=== PATIENT | female | born 1990 | race Caucasian/White ===

== ENCOUNTER 2021-10-01 00:50 | Observation (INO) | payer OTHER, SELFPAY ==
[2021-10-01 01:12] VITALS: BP 120/70; PULSE 93
[2021-10-01 01:23] VITALS: BMI 32.0
--- NOTE | 2021-10-01 01:23 | OBADM ---
This patient, Jenifer Jesus, admitted to the OB room OB Post 116 for observation. Patient/family oriented to hospital policies and general routines including ID bracelet, bed and alarms, visiting hours, pain management, procedures, bathroom and other care routines, personal items, smoking policy, room service/diet, and visiting hours. Patient/Family are encouraged to report perceived risks to care and to ask questions if they do not understand what they are told or what they should do.
[2021-10-01 01:31] VITALS: BP 121/64; PULSE 90
[2021-10-01 01:37] LABS: Add Urine Microscopic? YES; Appearance Urine Clear (Clear); Bacteria Urine Trace /hpf; Bilirubin Urine Negative (Negative); Blood Urine Negative (Negative); Color Urine Yellow (Yellow); Glucose Urine UA Negative (Negative); Ketones Urine Negative (Negative); Leukocyte Esterase Ur Trace LEU/UL (NEGATIVE); Mucus Urine Rare /lpf; Nitrate Urine Negative (Negative); Protein Urine Negative (Negative); RBC Urine 0-2 /hpf (0-2); Specific Grav Ur 1.017 (1.001-1.035); Squamous Epithelial Cell Urine Many /hpf (Few); Urobilinogen Urine Negative mg/dL (<2.0)
[2021-10-01 01:46] VITALS: BP 117/69; PULSE 88
[2021-10-01] MEDS: TERBUTALINE SULFATE 1 MG/ML VIAL 0.25 MG SUB-Q (01:55)
--- NOTE | 2021-10-13 16:20 | PM.OBTRLD ---
OB - Triage/Final Diagnosis Visit Information Reason for evaluation: threatened labor Comments/Additional reasons for admission: I have assessed the risk for this patient, Jenifer Jesus, and determined that she would benefit from observation care. Evaluation Laboratory results: Laboratory Tests 10/01/21 01:13 Urine Color Yellow Urine Appearance Clear Urine pH 6.0 Ur Specific [place] 1.017 Urine Protein Negative Urine Glucose (UA) Negative Urine Ketones Negative Ur Blood (Man) Negative Urine Nitrate Negative Urine Bilirubin Negative Urine Urobilinogen Negative Ur Leukocyte Esterase Trace H Urine RBC 0-2 Urine WBC 4-6 H Ur Squamous Epith Cells Many H Urine Bacteria Trace Urine Mucus Rare
== END 2021-10-01 03:00 | disposition home or self-care (01) ==
PROVIDERS: Admitting Provider Obstetrics & Gynecology; PCP Emergency Medicine; Visit Provider Obstetrics & Gynecology
DX: O47.03 False labor before 37 completed weeks of gestation, third trimester (principal); Z3A.32 32 weeks gestation of pregnancy
CPT/HCPCS: 81001; 87086; 87088; 96372; G0378; G0379; J3105

== ENCOUNTER 2021-10-08 09:46 | Observation (INO) | payer OTHER, SELFPAY ==
--- NOTE | ~2021-10-08 | US_ITS ---
EXAMINATION: US OB BPP wo non-stress DATE: 10/08/2021 12:15 INDICATION: labor during third trimester TECHNIQUE: Real-time pelvic ultrasound was performed with transabdominal probe. The interpreting radi ologist was not present for the study. COMPARISON: None. FINDINGS: There is a single living fetus in vertex presentation. The placenta is posterior with caudal margin 6.9 cm from the internal cervical os. heart rate is 143 beats per minute (bpm). Suggestion of p ossible funneling at the internal cervical os over the cervix is not sufficiently profiled for diagno stic assessment. Biophysical profile performed by the technologist: breathing (30 sec sustained breathing in 30 minutes): 2 out of 2 movement (3 gross body movements in 30 minutes): 2 out of 2 tone (one episode of mzzrxgm-bthsmsric-sevzhts limb movement): 2 out of 2 Amniotic fluid pocket (2 cm): 2 out of 2 Total score: 8 out of 8 IMPRESSION: 1. Single living fetus in vertex presentation with heart rate of 143 bpm. 2. Biophysical profile 8 out of 8. 3. Possible funneling at the internal cervical os however the cervix is not adequately visualized for diagnostic assessment. Reviewed, dictated and finalized at location A. [facility] IMPRESSION: 1. Single living fetus in vertex presentation with heart rate of 143 bpm. 2. Biophysical profile 8 out of 8. 3. Possible funneling at the internal cervical os however the cervix is not john quately visualized for diagnostic assessment.
[2021-10-08 11:45] LABS: Basophils Percent Auto 0.3 % (0.2-1.2); Eosinophils Absolute Auto 0.1 K/mm3 (0-0.3); Eosinophils Percent Auto 0.9 % (0-4.4); Hematocrit 28.9 % (37.0-47.0); Hemoglobin 9.3 g/dL (12.0-15.0); Immature Granulocyte Absolute 0.24 K/mm3 (0.00-0.031); Immature Granulocyte Percent A 1.9 % (0-0.5); Lymphocytes Absolute Auto 3.26 K/mm3 (0.9-3.2); Lymphocytes Percent Auto 25.3 % (18.3-44.2); Mean Corpuscular HGB Conc 32.2 g/dl (32-36); Mean Corpuscular Hemoglobin 29.3 pg (26-34); Mean Corpuscular Volume 91.2 fl (80-100); Mean Platelet Volume 9.3 fl (7.4-10.4); Monocytes Absolute Auto 0.7 K/mm3 (0.1-0.6); Monocytes Percent Auto 5.6 % (2.6-8.5); Neutrophils Absolute Auto 8.5 K/mm3 (1.3-6.7); Platelet Count Result 299 k/mm3 (150-375); Red Blood Count 3.17 M/mm3 (4.2-5.4); Red Cell Distribution Width 14.9 % (11.5-14.5); White Blood Count 12.9 K/mm3 (4.5-10.0)
[2021-10-08] MEDS: BETAMETHASONE SOD PHOS/ACETATE 30 MG/5 ML VIAL 12 MG IM (11:48)
[2021-10-08 11:51] VITALS: BP 119/76; PULSE 89
[2021-10-08 12:01] LABS: Glucose 1 Hour PP 50gm Dose 126 mg/dL
[2021-10-08 12:04] LABS: Add Urine Microscopic? YES; Appearance Urine Clear (Clear); Bilirubin Urine Negative (Negative); Blood Urine Negative (Negative); Color Urine Yellow (Yellow); Glucose Urine UA Negative (Negative); Ketones Urine Negative (Negative); Leukocyte Esterase Ur 1+ LEU/UL (NEGATIVE); Mucus Urine Rare /lpf; Nitrate Urine Negative (Negative); Protein Urine Negative (Negative); RBC Urine 0-2 /hpf (0-2); Specific Grav Ur 1.016 (1.001-1.035); Squamous Epithelial Cell Urine Many /hpf (Few); Urobilinogen Urine Negative mg/dL (<2.0)
[2021-10-08 12:32] LABS: Hepatitis B Surface Antigen Negative (Negative)
[2021-10-08 12:42] LABS: HIV 1/2 Ab P24 Ag Result Negative (Negative)
[2021-10-08 13:06] LABS: Rapid Plasma Reagin Non-Reactive (NonReactive)
[2021-10-08 13:23] VITALS: BMI 34.0
--- NOTE | 2021-10-09 18:16 | PM.OBTRLD ---
OB - Triage/Final Diagnosis Visit Information Comments/Additional reasons for admission: I have assessed the risk for this patient, Jenifer Jesus, and determined that she would benefit from observation care. Evaluation Laboratory results: Laboratory Tests 10/08/21 10/08/21 10/08/21 11:18 11:18 11:18 WBC RBC Hgb Hct MCV MCH MCHC RDW Plt Count MPV Immature Gran % (Auto) Neut % (Auto) Lymph % (Auto) [place] % (Auto) Eos % (Auto) Baso % (Auto) Lymph # (Auto) [place] # (Auto) Eos # (Auto) Baso # (Auto) Abs Immat Gran (auto) Absolute Neuts (auto) Absolute Nucleated RBC Nucleated RBC % Glucose 1 Hr 50 gm Urine Color Yellow Urine Appearance Clear Urine pH 7.0 Ur Specific [place] 1.016 Urine Protein Negative Urine Glucose (UA) Negative Urine Ketones Negative Ur Blood (Man) Negative Urine Nitrate Negative Urine Bilirubin Negative Urine Urobilinogen Negative Ur Leukocyte Esterase 1+ H Urine RBC 0-2 Urine WBC 4-6 H Ur Squamous Epith Cells Many H Urine Mucus Rare RPR Non-reactive Hep Bs Antigen Negative HIV 1&2 Ab/P24 Ag 4thGn Blood Type Antibody Screen Screen Baby's Blood Type Baby's RUTH Doses of RhIg Required 10/08/21 10/08/21 10/08/21 11:18 11:18 11:18 WBC 12.9 H RBC 3.17 L Hgb 9.3 L Hct 28.9 L MCV 91.2 MCH 29.3 MCHC 32.2 RDW 14.9 H Plt Count 299 MPV 9.3 Immature Gran % (Auto) 1.9 H Neut % (Auto) 66.0 Lymph % (Auto) 25.3 [place] % (Auto) 5.6 Eos % (Auto) 0.9 Baso % (Auto) 0.3 Lymph # (Auto) 3.26 H [place] # (Auto) 0.7 H Eos # (Auto) 0.1 Baso # (Auto) 0.0 Abs Immat Gran (auto) 0.24 H Absolute Neuts (auto) 8.5 H Absolute Nucleated RBC 0.0 Nucleated RBC % 0.0 Glucose 1 Hr 50 gm 126 Urine Color Urine Appearance Urine pH Ur Specific [place] Urine Protein Urine Glucose (UA) Urine Ketones Ur Blood (Man) Urine Nitrate Urine Bilirubin Urine Urobilinogen Ur Leukocyte Esterase Urine RBC Urine WBC Ur Squamous Epith Cells Urine Mucus RPR Hep Bs Antigen HIV 1&2 Ab/P24 Ag 4thGn Negative Blood Type Antibody Screen Screen Baby's Blood Type Baby's RUTH Doses of RhIg Required 10/08/21 11:18 WBC RBC Hgb Hct MCV MCH MCHC RDW Plt Count MPV Immature Gran % (Auto) Neut % (Auto) Lymph % (Auto) [place] % (Auto) Eos % (Auto) Baso % (Auto) Lymph # (Auto) [place] # (Auto) Eos # (Auto) Baso # (Auto) Abs Immat Gran (auto) Absolute Neuts (auto) Absolute Nucleated RBC Nucleated RBC % Glucose 1 Hr 50 gm Urine Color Urine Appearance Urine pH Ur Specific [place] Urine Protein Urine Glucose (UA) Urine Ketones Ur Blood (Man) Urine Nitrate Urine Bilirubin Urine Urobilinogen Ur Leukocyte Esterase Urine RBC Urine WBC Ur Squamous Epith Cells Urine Mucus RPR Hep Bs Antigen HIV 1&2 Ab/P24 Ag 4thGn Blood Type O Negative Antibody Screen Negative Screen Not Reportable Baby's Blood Type Not Reportable Baby's RUTH Not Reportable Doses of RhIg Required 1 Final Diagnosis (1) Vaginal discharge during : Code(s): O26.899 - Other specified related conditions, unspecified trimester; N89.8 - Other specified noninflammatory disorders of vagina Status: Acute
== END 2021-10-08 13:05 | disposition home or self-care (01) ==
PROVIDERS: Admitting Provider Obstetrics & Gynecology; PCP Emergency Medicine; Visit Provider Obstetrics & Gynecology
DX: O26.899 Other specified pregnancy related conditions, unspecified trimester (principal); N89.8 Other specified noninflammatory disorders of vagina; Z3A.00 Weeks of gestation of pregnancy not specified
CPT/HCPCS: 36415; 76819; 81001; 82947; 85025; 85461; 86592; 86644; 86703; 86747; 86787; 87086; 87088; 87340; 96372; G0378; G0379; G0432; J0702

== ENCOUNTER 2021-10-09 11:41 | Outpatient (CLI) | payer OTHER, SELFPAY ==
[2021-10-09] MEDS: BETAMETHASONE SOD PHOS/ACETATE 30 MG/5 ML VIAL 12 MG IM (11:54)
--- NOTE | 2021-10-09 12:05 | PC.NURSE ---
Called with pt status. Pt states that she has had increased discharge since last night and diarrhea. Pt states that she had contractions last night for about 1.5 hrs, then they stopped. Orders received to do ROM plus and NST.
[2021-10-09 12:15] VITALS: BP 120/71; PULSE 92
--- NOTE | 2021-10-09 13:35 | PC.NURSE ---
Called Dr. Jerry with update. ROM plus negative. Contractions noted on monitor that increased for a short amount of time, then decreased again. Orders received for Procardia. Watch 3omin, then may D/C home if not further issues.
[2021-10-09] MEDS: NIFEdipine 10 MG CAPSULE PO (13:55)
--- NOTE | 2021-10-09 14:20 | PC.NURSE ---
No further contractions seen on monitor or felt per pt.
== END 2021-10-09 14:25 | disposition home or self-care (01) ==
LOC: ANHOBOP 11:44 → ANHLDR 11:44
PROVIDERS: PCP Emergency Medicine; Visit Provider Obstetrics & Gynecology
DX: O42.90 Premature rupture of membranes, unspecified as to length of time between rupture and onset of labor, unspecified weeks of gestation (principal); Z3A.00 Weeks of gestation of pregnancy not specified
CPT/HCPCS: 59025; 84112; 99199; A9270; J0702

== ENCOUNTER 2021-10-17 22:36 | Observation (INO) | payer OTHER, SELFPAY ==
[2021-10-17] VITALS (11 sets, daily range): BP systolic 108–131; BP diastolic 62–80; PULSE 97–113; TEMP 36.8; O2SAT 95–97; BMI 33.0
[2021-10-18] VITALS: BP 128/72; PULSE 115
[2021-10-18 00:01] VITALS: PULSE 111; O2SAT 96
[2021-10-18 00:06] VITALS: PULSE 116; O2SAT 96
[2021-10-18 00:11] VITALS: PULSE 110; O2SAT 96
[2021-10-18 00:15] VITALS: BP 120/72; PULSE 114
[2021-10-18 00:16] VITALS: PULSE 117; O2SAT 97
--- NOTE | 2021-10-21 09:59 | PM.OBTRLD ---
OB - Triage/Final Diagnosis Visit Information Reason for evaluation: threatened labor Comments/Additional reasons for admission: I have assessed the risk for this patient, Jenifer Jesus, and determined that she would benefit from observation care.
== END 2021-10-18 00:30 | disposition home or self-care (01) ==
PROVIDERS: Admitting Provider Obstetrics & Gynecology; PCP Emergency Medicine; Visit Provider Obstetrics & Gynecology
DX: O47.03 False labor before 37 completed weeks of gestation, third trimester (principal); Z3A.35 35 weeks gestation of pregnancy
CPT/HCPCS: G0378; G0379

== ENCOUNTER 2021-10-31 20:44 | Observation (INO) | payer OTHER, SELFPAY ==
[2021-10-31 20:44] VITALS: BMI 34.8
[2021-10-31 23:12] VITALS: BP 119/67; PULSE 90
[2021-10-31 23:15] VITALS: BP 118/72; PULSE 96
[2021-10-31 23:30] VITALS: BP 125/68; PULSE 94
--- NOTE | 2021-10-31 23:38 | OBADM ---
This patient, Jenifer Jesus, admitted to the OB room Labor/Delivery/Recovery 105 for observation. Patient/family oriented to hospital policies and general routines including ID bracelet, bed and alarms, visiting hours, pain management, procedures, bathroom and other care routines, personal items, smoking policy, room service/diet, and visiting hours. Patient/Family are encouraged to report perceived risks to care and to ask questions if they do not understand what they are told or what they should do.
[2021-10-31 23:45] VITALS: BP 112/73; PULSE 94
== END 2021-10-31 23:55 | disposition home or self-care (01) ==
PROVIDERS: Admitting Provider Obstetrics & Gynecology; PCP Emergency Medicine; Visit Provider Obstetrics & Gynecology
DX: O47.03 False labor before 37 completed weeks of gestation, third trimester (principal); Z3A.37 37 weeks gestation of pregnancy
CPT/HCPCS: G0378; G0379

== ENCOUNTER 2021-11-13 06:35 | Inpatient (IN) | payer OTHER, SELFPAY ==
[2021-11-13] VITALS (109 sets, daily range): BP systolic 95–135; BP diastolic 50–101; PULSE 80–110; RESP 16–18; TEMP 36.6–37.4; O2SAT 94–100; BMI 34.6
--- OUTSIDE RECORDS SUMMARY | 2021-11-13 06:40 | XMS_ITS ---
:1990 Author Care Team Providers Name Role Phone HILDA AGUIAR Primary Care Provider [phone] Allergies Code Code System Name Reaction Severity Status Onset NKDA ? Notes: Some allergies listed in Document: #[id number] could not be added to this patient's chart. Please review this docu ment and add these allergies to the patient's chart manually as needed. Medications Name Status Start Date Stop Date ? ? amoxicillin 500 mg capsule Completed ? 04/10 TK 1 C PO Q 12 H FOR 7 DAYS amoxicillin 875 mg tablet Completed ? 2018 TK 1 T PO Q 12 H FOR 10 DAYS amoxicillin 875 mg-potassium Completed ? 04/2019 clavulanate 125 mg tablet ampicillin 500 mg capsule Completed ? 2018 azithromycin 250 mg tablet Completed ? 10/17 TK 2 TS PO AT ONCE TODAY THEN TK 1 T PO ONCE D FOR 4 DAYS cephalexin 500 mg capsule Completed ? 2018 TK 1 C PO Q 8 H FOR 7 DAYS chlorhexidine gluconate 0.12 % Completed ? 0 10/17/2018 mouthwash hydroco/apap tab Completed ? 10/17/2018 5-325mghydrocodone/acetaminophen hydrocodone 5 mg-acetaminophen 325 mg Completed ? 10/17/2018 tablet naproxen 500 mg tablet Completed ? 9 nitrofurantoin Completed ? 03/14/2019 monohydrate/macrocrystals 100 mg capsule Vitamin 27 mg iron-0.8 mg tablet Active ? Not available Take 1 tablet every day by oral route.
--- OUTSIDE RECORDS SUMMARY | 2021-11-13 06:40 | XMS_ITS ---
:1990 Author Care Team Providers Name Role Phone Nuria Jerry Primary Care Provider Unavailable Allergies Code Code System Name Reaction Severity Status Onset NKDA ? Notes: Some allergies listed in Document: #[id number] could not be added to this patient's chart. Please review this docu ment and add these allergies to the patient's chart manually as needed. Medications Name Status Start Date Stop Date ? ? amoxicillin 500 mg capsule Completed ? 04/10 TK 1 C PO Q 12 H FOR 7 DAYS amoxicillin 500 mg-potassium clavulanate 125 mg tablet Completed ? 05/20/2021 TAKE 1 TABLET BY MOUTH THREE TIMES DAILY FOR 10 DAY amoxicillin 875 mg tablet Completed ? 2018 TK 1 T PO Q 12 H FOR 10 DAYS amoxicillin 875 mg-potassium clavulanate 125 mg tablet Completed ? 05/20/2021 TAKE 1 TABLET BY MOUTH TWICE DAILY WITH FOOD ampicillin 500 mg capsule Completed ? 2018 azithromycin 250 mg tablet Completed ? 10/17 TK 2 TS PO AT ONCE TODAY THEN TK 1 T PO ONCE D FOR 4 DAYS cephalexin 500 mg capsule Completed ? 2018 TK 1 C PO Q 8 H FOR 7 DAYS chlorhexidine gluconate 0.12 % Completed ? 0 10/17/2018 mouthwash hydrocodone 5 mg-acetaminophen 325 mg tablet Completed ? 05/20/2021 TK 1 T PO Q 6 H PRN P metoclopramide 10 mg tablet Completed ? 06/2021 TAKE 1 TABLET BY MOUTH FOUR TIMES DAILY NEEDED FORNAUSEA AND VOMITING metronidazole 0.75 % vaginal gel Completed ? 10/08/2021 INSERT 1 APPLICATORFUL VAGINALLY EVERY DAY AT BEDTIME FOR 5 DAY S
--- OUTSIDE RECORDS SUMMARY | 2021-11-13 06:40 | XMS_ITS | Encounter Summary ---
:1990 Author Reason for Visit return OB visit Assessment and Plan 1. Routine care ? HIV (1+2) Ab screen, serum ? CBC ? streptococcus group B, cul ture, unspecified specimen ? CBC ? varicella-zoster igg Ab sc reen, serum ? parvovirus B19 igg Ab, ser um ? cytomegalovirus (cmv) igg Ab, quantitative, serum ? RPR (rapid plasma reagin), serum ? HBsAg (hepatitis B surface Ag), serum ? culture, urine ? abo group + rh type, blood ? antibody screen, serum or plasma ? glucose tolerance test, ge stational, 1-hour ? Rh immune globulin screeni ng - workup and injection Discussion Note: None recorded.Patient educational handouts: No information available. Plan of Care Reminders Provider Appointments None recorded. ? ? Lab HIV (1+2) Ab [address] Screen, Serum 10[facility]08/[facility]21 [facility] ? [facility] [place] 10/08/20[facility] ? Streptococcus [place] Group B, Culture, [facility] Unspecified Specimen [facility]Lab[facility] ? [facility] [place] 10[facility]08/20[facility] ? Varicella-zoster
--- OUTSIDE RECORDS SUMMARY | 2021-11-13 06:40 | XMS_ITS ---
:1990 Author Care Team Providers Name Role Phone HILDA AGUIAR Primary Care Provider [phone] Allergies Code Code System Name Reaction Severity Status Onset NKDA ? Medications Name Status Start Date Stop Date ? ? amoxicillin 500 mg capsule Active ? Not a vailable TK 1 C PO Q 12 H FOR 7 DAYS amoxicillin 875 mg tablet Unknown ? Not av ailable TK 1 T PO Q 12 H FOR 10 DAYS amoxicillin 875 mg-potassium clavulanate Unknown ? Not available 125 mg tablet ampicillin 500 mg capsule Active ? Not av ailable cephalexin 500 mg capsule Active ? Not av ailable TK 1 C PO Q 8 H FOR 7 DAYS chlorhexidine gluconate 0.12 % mouthwash Unknown ? Not available hydrocodone 5 mg-acetaminophen 325 mg Unknown ? Not available tablet naproxen 500 mg tablet Active ? Not avail able nitrofurantoin monohydrate/macrocrystals Active ? Not available 100 mg capsule triamcinolone acetonide 0.1 % topical Active ? Not available ointment Problems Name Status Onset Date Source ? Streptococcal Infectious Disease Active ? Encounter Procedures Notes: leep surgery Results Lab Results None recorded. Past Encounters None recorded. Social History Tobacco Smoking Status Heavy Tobacco Smoker (1/2 pack per da y) Vaccine List
[2021-11-13 07:14] LABS: Basophils Absolute Auto 0.1 K/mm3 (0.0-0.1); Basophils Percent Auto 0.4 % (0.2-1.2); Eosinophils Absolute Auto 0.1 K/mm3 (0-0.3); Eosinophils Percent Auto 0.6 % (0-4.4); Hematocrit 29.4 % (37.0-47.0); Hemoglobin 9.6 g/dL (12.0-15.0); Immature Granulocyte Percent A 2.3 % (0-0.5); Lymphocytes Absolute Auto 4.04 K/mm3 (0.9-3.2); Lymphocytes Percent Auto 23.6 % (18.3-44.2); Mean Corpuscular HGB Conc 32.7 g/dl (32-36); Mean Corpuscular Hemoglobin 28.5 pg (26-34); Mean Corpuscular Volume 87.2 fl (80-100); Mean Platelet Volume 9.3 fl (7.4-10.4); Monocytes Absolute Auto 1.3 K/mm3 (0.1-0.6); Monocytes Percent Auto 7.4 % (2.6-8.5); Neutrophils Absolute Auto 11.2 K/mm3 (1.3-6.7); Neutrophils Percent Auto 65.7 % (45.5-73.1); Nucleated Red Blood Cells Perc 0.1 % (0.0-0.2); Platelet Count Result 313 k/mm3 (150-375); Red Blood Count 3.37 M/mm3 (4.2-5.4); Red Cell Distribution Width 16.3 % (11.5-14.5); White Blood Count 17.1 K/mm3 (4.5-10.0)
[2021-11-13] MEDS: LACTATED RINGERS 1,000 ML 125 ML IV CONT ×2 (07:15→10:32)
[2021-11-13] MEDS: AMPICILLIN 2 GM/NS 100 ML 2 GM/100 ML BAG IVPB (07:15)
--- NOTE | 2021-11-13 07:18 | LDADM ---
This patient, Jenifer Jesus, was admitted to Labor/Delivery/Recovery 106 on 11/13/21 at 06:35. Plans for labor, pain management and were discussed with patient. Patient/family oriented to hospital policies and general routines including ID bracelet, bed and alarms, visiting hours, pain management, procedures, bathroom and other care routines, personal items, smoking policy, room service/diet and guest tray routines, security routines, and visiting hours. Patient/Family are encouraged to report perceived risks to care and to ask questions if they do not understand what they are told or what they should do. See OBIX for further documentation.
--- NOTE | 2021-11-13 07:23 | PM.IMHP ---
H&P: HPI History of Present Illness Date/Time: 11/13/21 07:23 Jenifer is a 31yo @ 39.0wks (JOHNATHAN 11/20/21) who presents for induction of labor. She reports good movement. Has been having contractions. No VB or LOF. Her is complicated by: - Grandmultiparity - Lapse in care from 22-33wks. - H/o LEEP - H/o shoulder dystocia with 3rd delivery - Anemia - GBS positive Chief Complaint: induction of labor Review of Systems Review of Systems: All systems reviewed & are unremarkable except as noted in HPI and below (HPI) [facility] Past Medical History Medical History Wrist joint pain Surgical History Surgical History H/O LEEP (~10/11/11) Family History Family History Father Hypertension Grandparent Diabetes mellitus Grandparent History of cancer Social History Social History Smoking packs per day: 0.5 Smoking cigarettes per day: 10.0 Years smoked: 15 Smoking pack-years: 7.50 Smoking status: Current every day smoker Tobacco type: cigarettes Second hand tobacco smoke exposure: Yes Additional smoking assessment comments: 1/2 pack a day Alcohol intake: never Substance use: current Gender identity (if verbalized by the patient): Female Sexual Orientation (if Verbalized by the Patient): Straight or Heterosexual Spiritual care concerns: No Meds Home Medications and Allergies Home Medications Medication Instructions Recorded Confirmed Type docusate sodium 100 mg capsule 100 mg PO BID #60 cap 10/22/21 10/29/21 Rx ferrous sulfate 325 mg (65 mg 325 mg PO BID #60 tablet 10/22/21 11/07/21 Rx iron) tablet prenat.vits,wicho,wgn-fuep-ndkul 1 tablet PO DAILY 10/22/21 11/07/21 History amoxicillin 500 mg capsule 500 mg PO Q12H 10/29/21 10/29/21 History Allergies Allergy/AdvReac Type Severity Reaction Status Date / Time No Known Allergies Allergy Verified 11/07/21 11:06 Vital Signs Vital Signs - 24 hr 11/13/21 06:58 11/13/21 07:16 Pulse Rate 100 89 Blood Pressure 118/68 109/68 Exam Const: General: cooperative, comfortable and no acute distress Nutritional Appearance: obese Resp: Effort & Inspection: normal respiratory effort Cardio: Rate: regular rate GI: GI Palp: No abdominal tenderness and Yes Soft to palpation : Other: FHT's: 140's/mod allyson/ + accels/ no decels - cat 1 TOCO: ctx's q5min Cervix: 4/50/-3 Membranes: intact Presentation: cephalic Skin: General skin exam: normal color Neuro: General: patient oriented x3 Extrem: General: normal to inspection Psych: Appearance: grossly normal Affect: normal affect Attitude: cooperative H&P: Results Labs Labs: Short CBC 11/13/21 Range/Units 07:01 WBC 17.1 H (4.5-10.0) K/mm3 Hgb 9.6 L (12.0-15.0) g/dL Hct 29.4 L (37.0-47.0) % Plt Count 313 (150-375) k/mm3 Assessment and Plan Assessment and plan (1) Encounter for induction of labor: Code(s): Z34.90 - Encounter for supervision of normal , unspecified, unspecified trimester Status: Acute Additional Plan - Admitted to L&D for induction of labor - Pitocin per protocol - Continuous monitoring; currently reassuring - Ampillin for GBS - Anesthesia consult PRN pain
--- NOTE | 2021-11-13 07:39 | WPDHPUPDATE1 ---
History and Physical Update Update Date/Time: 11/13/21 07:39 History and Physical has been reviewed, including an updated exam of the patient. There are NO changes in the patient's condition. Risks, benefits, and alternatives have been discussed and questions answered. Patient agrees to proceed with procedure.
--- NOTE | 2021-11-13 07:51 | WPDANESEPP ---
Anes - Eval Pre Procedure Date/Time: 11/13/21 07:51 Pre Op Diagnosis: IOL Patient Data Age: 31 Gender: F Height: 1.68 m Weight: 97.4 kg Last Vital Signs Pulse 87 11/13/21 07:46 BP 120/85 11/13/21 07:46 Allergies Allergy/AdvReac Type Severity Reaction Status Date / Time No Known Allergies Allergy Verified 11/07/21 11:06 Home Medications Medication Instructions Recorded Confirmed Type docusate sodium 100 mg capsule 100 mg PO BID #60 cap 10/22/21 10/29/21 Rx ferrous sulfate 325 mg (65 mg 325 mg PO BID #60 tablet 10/22/21 11/07/21 Rx iron) tablet prenat.vits,wicho,vmn-xsir-oatgk 1 tablet PO DAILY 10/22/21 11/07/21 History amoxicillin 500 mg capsule 500 mg PO Q12H 10/29/21 10/29/21 History Laboratory Tests 11/13/21 11/13/21 11/13/21 07:01 07:01 07:01 WBC 17.1 K/mm3 H K/mm3 (4.5-10.0) RBC 3.37 M/mm3 L M/mm3 (4.2-5.4) Hgb 9.6 g/dL L g/dL (12.0-15.0) Hct 29.4 % L % (37.0-47.0) MCV 87.2 fl fl (80-100) MCH 28.5 pg pg (26-34) MCHC 32.7 g/dl g/dl (32-36) RDW 16.3 % H % (11.5-14.5) Plt Count 313 k/mm3 k/mm3 (150-375) MPV 9.3 fl fl (7.4-10.4) Immature Gran % (Auto) 2.3 % H % (0-0.5) Neut % (Auto) 65.7 % % (45.5-73.1) Lymph % (Auto) 23.6 % % (18.3-44.2) Major % (Auto) 7.4 % % (2.6-8.5) Eos % (Auto) 0.6 % % (0-4.4) Baso % (Auto) 0.4 % % (0.2-1.2) Lymph # (Auto) 4.04 K/mm3 H K/mm3 (0.9-3.2) Major # (Auto) 1.3 K/mm3 H K/mm3 (0.1-0.6) Eos # (Auto) 0.1 K/mm3 K/mm3 (0-0.3) Baso # (Auto) 0.1 K/mm3 K/mm3 (0.0-0.1) Abs Immat Gran (auto) 0.40 K/mm3 H K/mm3 (0.00-0.031) Absolute Neuts (auto) 11.2 K/mm3 H K/mm3 (1.3-6.7) Absolute Nucleated RBC 0.0 K/mm3 K/mm3 (0.0-0.012) Nucleated RBC % 0.1 % % (0.0-0.2) RPR Pending Rubella IgG Antibody Pending Patient hx anesthesia problems: none Family hx anesthesia problems: none Results Review: All pre-operative results and documents have been reviewed as part of the pre-operative evaluation. [facility] Past Medical History Medical History Wrist joint pain Surgical History Surgical History H/O LEEP (~10/11/11) Family History Family History Father Hypertension Grandparent Diabetes mellitus Grandparent History of cancer Social History Social History Smoking packs per day: 0.5 Smoking cigarettes per day: 10.0 Years smoked: 15 Smoking pack-years: 7.50 Smoking status: Current every day smoker Tobacco type: cigarettes Second hand tobacco smoke exposure: Yes Additional smoking assessment comments: 1/2 pack a day Alcohol intake: never Substance use: current Gender identity (if verbalized by the patient): Female Sexual Orientation (if Verbalized by the Patient): Straight or Heterosexual Spiritual care concerns: No Exam Day of Procedure 11/13/21 07:51 Patient weight: obese Heart: regular rate and rhythm Lungs: normal air movement Airway: Mallampati scale class II Neurological: alert and oriented
[2021-11-13] MEDS: LACTATED RINGERS 1,000 ML 999 ML IV CONT (08:19)
[2021-11-13 08:30] LABS: Amphetamine Screen Urine Negative (Negative); Barbiturate Screen Urine Negative (Negative); Benzodiazepines Screen Urine Negative (Negative); Cannabinoid Screen Urine Positive (Negative); Cocaine Screen Urine Negative (Negative); Methadone Screen Urine Negative (Negative); Opiate Screen Urine Negative (Negative); Phencyclidine Screen Urine Negative (Negative)
[2021-11-13 08:58] LABS: Rubella IgG Antibody 21.9 IU/ML
[2021-11-13] MEDS: AMPICILLIN 1 GM/NS 50 ML 1 GM/50 ML BAG IVPB (11:17)
--- NOTE | 2021-11-13 12:34 | PM.OBPRVD ---
OB - Delivery Note Procedure Delivery date: 11/13/21 events: Labor Augmentation Intrapartal events: Deceleration Delivery augmentation: pitocin Delivery monitor: external FHT and external uterine Route of delivery: Laceration Description: Perineal - 1st Degree Delivery repair: vicryl Specimen: Yes (placenta) Quantitative Blood Loss (ml): 120 Anesthesia type: Epidural Disposition: floor Baby Date of : 11/13/21 Time of : 12:18 Weeks of gestation at delivery: 39 gender: Male Weight (pounds): 7 Weight (ounces): 1 presentation: vertex position: Left Occiput Anterior Placenta delivery description: Expressed cord vessel description: 3 Vessels score one minute: 8 score five minutes: 9 Narrative: Jenifer progressed to complete dilation and pushed twice. She delivered the head over intact perineum. No nuchal cord was palpated. She easily delivered the 's shoulders and body without complication. The infant was immediately placed skin to skin and had spontaneous cry. The cord was clamped and cut. A segment of the cord was collected for cord gases. The remaining cord blood was collected for typing. With Pitocin running and gentle downward traction on the cord, the placenta delivered without complications. Bimanual massage was performed and good uterine tone with minimal bleeding was noted. Patient was examined and a small first-degree perineal laceration was noted. The laceration was repaired using 2-0 Vicryl in a hdopdf-bi-czhml stitch and found to be hemostatic. Sponge, lap, instrument, and needle counts were correct at the end the procedure. Mom and baby were left bonding in the birthing suite in stable condition. [facility] Delivery Billing Delivery Delivery: Delivery Charge
[2021-11-13] MEDS: OXYTOCIN 30 UNITS/NS 500 ML 30 UNITS/500 ML BAG 125 UNITS IV CONT (12:43)
[2021-11-13] MEDS: BENZOCAINE 20% AER SPR (*SP) 56 GM CAN 1 SPRAY TOPICAL (13:56)
[2021-11-13] MEDS: WITCH HAZEL 40 PADS 1 PAD TOPICAL (13:56)
--- NOTE | 2021-11-13 15:05 | OBPPTRN ---
Patient transferred to post room # 277 via wheelchair accompanied by support person and infant. PT oriented to room and surrounding area. PT and significant other both recipients of instructions and no barriers to learning identified at this time. PT received instructions this shift via one to one discussion, mom baby care guide and demonstrations. Oriented to unit, room, information board, rooming in, admission packet and security measures. Patient verbalizes understanding.
[2021-11-13] MEDS: ACETAMINOPHEN 325 MG TABLET 650 MG PO (17:02)
[2021-11-13] MEDS: DOCUSATE SODIUM 100 MG CAPSULE PO (17:02)
[2021-11-13] MEDS: POLYSACCHARIDE IRON COMPLEX 150 MG CAPSULE PO (17:02)
[2021-11-13] MEDS: IBUPROFEN 600 MG TABLET PO (17:03)
[2021-11-13] MEDS: NICOTINE (*PBKC) 21 MG PATCH 1 PATCH TRANSDERM (18:48)
[2021-11-14] MEDS: IBUPROFEN 600 MG TABLET PO (03:49)
[2021-11-14] MEDS: ACETAMINOPHEN 325 MG TABLET 650 MG PO (03:49)
[2021-11-14 04:00] VITALS: BP 103/59; PULSE 89; RESP 18; TEMP 36.2; O2SAT 99
[2021-11-14 05:13] LABS: Hematocrit 28.4 % (37.0-47.0)
--- NOTE | 2021-11-14 08:22 | PM.OBPRVD ---
OB - Delivery Note Procedure events: Labor Augmentation Intrapartal events: Deceleration Anesthesia type: Epidural Baby Date of : 11/13/21 Time of : 12:18 Weeks of gestation at delivery: 39 gender: Male Weight (pounds): 7 Weight (ounces): 1 presentation: vertex position: Left Occiput Anterior Placenta delivery description: Expressed score one minute: 8 score five minutes: 9 [facility] Delivery Billing Delivery Delivery: Delivery Charge
--- NOTE | 2021-11-14 08:27 | PM.OBPNVD ---
OB - PN: Subj Subjective Date/time seen: 11/14/21 08:27 Narrative: PPD#1 Jenifer reports doing well today. 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 Her pain is controlled. She is tolerating regular diet, voiding, passing gas, and ambulating without issues. She is breast feeding. She would like her son circumcised. She would like to go home today. OB - PN: Obj Data Labs CBC & Chem 7: 11/14/21 03:43 Labs: Laboratory Results - last 24 hr 11/13/21 11/13/21 11/13/21 07:01 08:03 12:42 Hgb Hct Urine Opiates Screen Negative Urine Methadone Screen Negative Ur Barbiturates Screen Negative Ur Phencyclidine Scrn Negative Ur Amphetamine Screen Negative U Benzodiazepines Scrn Negative Urine Cocaine Screen Negative U Cannabinoids Screen Positive A Rubella IgG Antibody 21.9 Blood Type O Negative Antibody Screen Negative Screen Negative Baby's Blood Type B pos Baby's RUTH Negative Doses of RhIg Required 1 11/14/21 03:43 Hgb 9.0 L Hct 28.4 L Urine Opiates Screen Urine Methadone Screen Ur Barbiturates Screen Ur Phencyclidine Scrn Ur Amphetamine Screen U Benzodiazepines Scrn Urine Cocaine Screen U Cannabinoids Screen Rubella IgG Antibody Blood Type Antibody Screen Screen Baby's Blood Type Baby's RUTH Doses of RhIg Required OB - PN A/P Assessment and Plan (1) Normal vaginal delivery: Code(s): O80 - Encounter for full-term uncomplicated delivery Status: Acute Plan day: 1 Plan: routine care Comments: - Pelvic rest; take meds as prescribed - ER return precautions: fever, n/v/abd pain, bleeding, HTN Time Spent With Patient Time: Total time spent is greater than 50% in coordination of care (as documented) at patient's floor/unit and/or counseling patient: Review of Systems Constitutional: Constitutional: Denies chills, Denies fever(s) and Denies headache(s) Eyes: Eyes: Denies change in vision ENT: Denies dizziness and Denies headache(s) Cardiovascular: Cardiovascular: Denies chest pain, Denies palpitations and Denies dyspnea Respiratory: Respiratory: Denies cough and Denies dyspnea Gastrointestinal: Gastrointestinal: Denies nausea and Denies vomiting Neurologic: Denies dizziness and Denies headache(s) Endocrine: Endocrine: Denies palpitations Exam Const: General: cooperative, comfortable and no acute distress Orientation/consciousness: patient oriented x3 Resp: Effort & Inspection: normal respiratory effort Auscultation: clear to auscultation bilaterally Cardio: Rate: regular rate GI: Inspection: non-distended GI Palp: No abdominal tenderness and Yes Soft to palpation Auscultation: normal bowel sounds : Other: fundus firm Skin: General skin exam: normal color Neuro: General: patient oriented x3 Extrem: General: normal to inspection Psych: Appearance: grossly normal Affect: normal affect Attitude: cooperative
[2021-11-14] MEDS: DOCUSATE SODIUM 100 MG CAPSULE PO (08:59)
[2021-11-14] MEDS: POLYSACCHARIDE IRON COMPLEX 150 MG CAPSULE PO (08:59)
[2021-11-14 09:25] LABS: Rapid Plasma Reagin Non-Reactive (NonReactive)
--- NOTE | 2021-11-14 10:07 | PM.OBDSVD ---
DS: Admitting Diagnosis Discharge Date 11/14/21 Admitting Diagnosis contractions DS: Discharge Diagnosis Discharge Diagnosis (1) Normal vaginal delivery: Code(s): O80 - Encounter for full-term uncomplicated delivery Status: Acute OB - DS: Summary OB Procedures : Ultrasound OB Procedures Intrapartum: Spontaneous Vag Delivery OB Procedures: : RHo (D) lg Peripartum Data Delivery Method: Natural Vaginal Laceration Description: None complications: none [place] 1: Gender: Male Disposition of : home Status at Discharge Functional status at discharge: independent ambulation Overall status at discharge: patient is back to baseline Time Spent with Patient Time attestation: Total time spent providing and/or coordinating discharge services: Time spent: Less than 30 minutes Exam Const: General: cooperative, comfortable and no acute distress Orientation/consciousness: patient oriented x3 Resp: Effort & Inspection: normal respiratory effort Auscultation: clear to auscultation bilaterally Cardio: Rate: regular rate GI: Inspection: non-distended GI Palp: No abdominal tenderness and Yes Soft to palpation Auscultation: normal bowel sounds : Other: fundus firm Skin: General skin exam: normal color Neuro: General: patient oriented x3 Extrem: General: normal to inspection Psych: Appearance: grossly normal Affect: normal affect Attitude: cooperative DS: Data Data Completed and Pending Pending studies at discharge: Pending at discharge 11/13/21 12:22 Surgical [PTH] Routine Labs on day of discharge: Labs from last 24 hours 11/14/21 11/13/21 11/13/21 03:43 12:42 07:01 Hgb 9.0 L Hct 28.4 L RPR Non-reactive Blood Type O Negative Antibody Screen Negative Screen Negative Baby's Blood Type B pos Baby's RUTH Negative Doses of RhIg Required 1 Discharge Plan Discharge Attending physician on discharge: Nuria Jerry Discharging Clinician: Nuria Jerry Anticipated Discharge Date/Time: 11/14/21 15:00 Patient Disposition: Home, Self-Care Activity: may shower and pelvic rest Diet: regular Patient Instructions: Antibiotic Form Stand Alone Forms: General Discharge Information Follow-up/Referrals: Nuria Jerry MD [Physician] - 4 Weeks Discharge Medications: New acetaminophen [Mapap (acetaminophen)] 325 mg Tablet 650 mg PO Q6H PRN (Reason: Mild Pain (1-3) Or Headache) 10 Days Qty: 60 RF: 0 docusate sodium 100 mg Capsule 100 mg PO BID PRN (Reason: Constipation) 30 Days Qty: 60 RF: 0 ibuprofen 600 mg Tablet 600 mg PO Q6H PRN (Reason: Cramping) 10 Days Qty: 40 RF: 0 Continued prenat.vits,wicho,vtw-bnwc-nbnov Tablet 1 tablet PO DAILY 90 Days Qty: 90 RF: 0 Discontinued ferrous sulfate [Iron (ferrous sulfate)] 325 mg (65 mg iron) tablet 325 mg PO BID Qty: 60 RF: 1 docusate sodium [Colace] 100 mg capsule 100 mg PO BID Qty: 60 RF: 1 amoxicillin 500 mg capsule 500 mg PO Q12H RF: 0 Date of admission: 11/13/21 06:35 Primary Care Provider: Zoran Cervantes Admitting Provider: Nuria Jerry Attending physician on admission: Nuria Jerry Condition: Stable
[2021-11-14 10:14] VITALS: BP 106/73; PULSE 85; RESP 20; TEMP 36.4; O2SAT 98
[2021-11-14] MEDS: RHO(D) IMMUNE GLOBULIN 300 MCG/2 ML SYRINGE IM (10:57)
[2021-11-14 12:03] VITALS: BP 110/63; PULSE 92; RESP 16; TEMP 36.5; O2SAT 100
--- NOTE | 2021-11-14 13:46 | PC.NURSE ---
Care Coordination here to see pt.
--- NOTE | 2021-11-14 14:03 | PCCCNOTE ---
Care Coordination Consult: Met with pt. and father of baby Harry today. This is pt.'s 4th child. Pt.'s three other children reside with their FOB family. This is [place] 1st child. They have all necessary supplies at home including a car seat, crib, clothing, diapers, etc. They plan to sign up for [facility] services at discharge. resources provided. Pt. aware she tested positive for marijuana upon admission to hospital, she is aware baby tested negative for all substances. Pt. reports she recreationally uses marijuana. Denies any other substances. Denies she will continue to use marijuana at discharge. Offered substance abuse resources and she denied need. Denies any other case management needs. Submitted DCFS report regarding marijuana, [place] [id number].
[2021-11-17 10:38] VITALS: BP 114/79; PULSE 85; RESP 20; TEMP 36.7; O2SAT 99
== END 2021-11-14 15:28 | disposition home or self-care (01) | DRG 560 ==
LOC: ANHLDR 06:38 → ANHOB2 15:32
PROVIDERS: Admitting Provider Obstetrics & Gynecology; PCP Emergency Medicine; Visit Provider Obstetrics & Gynecology
DX: O99.824 Streptococcus B carrier state complicating childbirth (principal); O99.02 Anemia complicating childbirth; D64.9 Anemia, unspecified; O99.334 Smoking (tobacco) complicating childbirth; F17.210 Nicotine dependence, cigarettes, uncomplicated; O99.214 Obesity complicating childbirth; E66.9 Obesity, unspecified; O76 Abnormality in fetal heart rate and rhythm complicating labor and delivery; O70.0 First degree perineal laceration during delivery; O77.0 Labor and delivery complicated by meconium in amniotic fluid; Z3A.39 39 weeks gestation of pregnancy; Z37.0 Single live birth
CPT/HCPCS: 36415; 80307; 85014; 85018; 85025; 85460; 85461; 86592; 86762; 86850; 86900; 86901; 88307; 90384; A9270; J0290; J2590; J2790; J2795; J7120

== ENCOUNTER 2022-10-28 11:04 | Emergency (ER) | payer OTHER, SELFPAY ==
--- NOTE | ~2022-10-28 | XR_ITS ---
Portable chest x-ray Comparison: None Clinical History: Injury Findings: Lungs are clear, without focal consolidation or pleural effusion. Cardiomediastinal silho uette is unremarkable. Bones and soft tissues are unremarkable. Impression: Clear lungs. Reviewed, dictated and finalized at location . 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
[2022-10-28 11:38] VITALS: BP 111/68; PULSE 82; RESP 15; TEMP 36.3; O2SAT 100
[2022-10-28 11:56] LABS: Basophils Percent Auto 0.3 % (0.2-1.2); Eosinophils Absolute Auto 0.3 K/mm3 (0-0.3); Eosinophils Percent Auto 2.3 % (0-4.4); Hematocrit 35.4 % (37.0-47.0); Hemoglobin 11.7 g/dL (12.0-15.0); Immature Granulocyte Absolute 0.04 K/mm3 (0.00-0.031); Immature Granulocyte Percent A 0.3 % (0-0.5); Lymphocytes Absolute Auto 3.57 K/mm3 (0.9-3.2); Mean Corpuscular HGB Conc 33.1 g/dl (32-36); Mean Corpuscular Hemoglobin 30.2 pg (26-34); Mean Corpuscular Volume 91.5 fl (80-100); Mean Platelet Volume 9.6 fl (7.4-10.4); Monocytes Absolute Auto 0.7 K/mm3 (0.1-0.6); Monocytes Percent Auto 5.7 % (2.6-8.5); Neutrophils Percent Auto 60.4 % (45.5-73.1); Platelet Count Result 245 k/mm3 (150-375); Red Blood Count 3.87 M/mm3 (4.2-5.4); Red Cell Distribution Width 14.3 % (11.5-14.5); White Blood Count 11.5 K/mm3 (4.5-10.0)
[2022-10-28 12:08] LABS: Alanine Aminotransferase 25 U/L (6-35); Albumin Level 4.1 g/dL (3.5-5.1); Alkaline Phosphatase 68 U/L (38-126); Anion Gap 5 mmol/L (8-16); Aspartate Amino Transferase 23 U/L (14-36); Bilirubin,Total 0.5 mg/dL (0.2-1.3); Blood Urea Nitrogen 9 mg/dL (7-17); Calcium 9.1 mg/dL (8.4-10.2); Carbon Dioxide 24 mmol/L (22-30); Chloride 104 mmol/L (98-107); Estimated CRCL calculation 126 ml/min; Estimated Glomerular Filt Rate > 60; Glucose 78 mg/dL (65-110); Lipase 55 U/L (23-300); Potassium 3.5 mmol/L (3.4-5.0); Sodium 133 mmol/L (137-145)
[2022-10-28 12:29] LABS: Appearance Urine Clear (Clear); Bilirubin Urine Negative (Negative); Blood Urine Negative (Negative); Color Urine Yellow (Yellow); Glucose Urine UA Negative (Negative); Ketones Urine Negative (Negative); Leukocyte Esterase Ur 2+ LEU/UL (Negative); Nitrate Urine Negative (Negative); Protein Urine Negative (Negative); Specific Grav Ur 1.025 (1.001-1.035); Urobilinogen Urine 0.2 mg/dL (<2.0); pH Urine 6.5 (5.0-9.0)
--- NOTE | 2022-10-28 12:33 | ED.ABDPAIN ---
HPI - Abdominal Pain General Chief Complaint: Abdominal Pain Stated Complaint: back pain, 12 weeks Time Seen by Provider: 10/28/22 12:26 Source: patient History of Present Illness HPI narrative: 32 years old white female presents was pain at the right lower ribs posteriorly, sharp, worse with movement and breathing. 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 She denies any abnormality today compared to the past. Patient is 12 weeks . Patient is 9, para 5 3. She denies any fever, chills, nausea, vomiting, chest pain or shortness of breath. Related Data Allergies Allergy/AdvReac Type Severity Reaction Status Date / Time No Known Allergies Allergy Verified 10/28/22 12:09 Review of Systems Review of Systems: All systems reviewed & are unremarkable except as noted in HPI and below PMFSH Past Medical History Medical History Suppression of menses Wrist joint pain Surgical History Surgical History H/O LEEP (~10/11/11) Family History Family History Father Hypertension Grandparent Diabetes mellitus Grandparent History of cancer Social History Social History Smoking packs per day: 0.5 Smoking cigarettes per day: 10.0 Years smoked: 15 Smoking pack-years: 7.50 Smoking status: Current every day smoker Tobacco type: cigarettes Second hand tobacco smoke exposure: Yes Additional smoking assessment comments: 1/2 pack a day Alcohol intake: never Substance use: current Substance use type: marijuana Gender identity (if verbalized by the patient): Female Sexual Orientation (if Verbalized by the Patient): Straight or Heterosexual Spiritual care concerns: No Exam Narrative: General appearance: Well-developed, well-nourished Skin: Normal color, vesicular rash at the lower ribs posteriorly all the way under the right breast Head: Normocephalic, nontraumatic Eyes: Clear conjunctiva ENT: Oropharynx normal, ears normal, nose normal Neck: Supple, nontender Chest and respiratory: Airway patent, no respiratory distress, no accessory muscle use Heart: Regular rate/rhythm Abdomen: Soft, nontender, no organomegaly, quiet bowel sounds Vascular: Normal peripheral pulses, normal capillary refill. 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 Date: 10/28/22 Time: 14:39 Vital Signs Vital signs: Vital Signs Temperature 36.3 C L 10/28/22 11:38 Pulse Rate 82 10/28/22 11:38 Respiratory Rate 15 10/28/22 11:38 Blood Pressure 111/68 10/28/22 11:38 Pulse Oximetry 100 10/28/22 11:38 Oxygen Delivery Room Air 10/28/22 11:38 Temperature 36.3 C L 10/28/22 11:38 Pulse Rate 82 10/28/22 11:38 Respiratory Rate 15 10/28/22 11:38 Blood Pressure 111/68 10/28/22 11:38 Pulse Oximetry 100 10/28/22 11:38 Oxygen Delivery Room Air 10/28/22 11:38 MDM - Abdominal Pain MDM Narrative Medical decision making narrative: Patient presents with sharp pain at the right lower ribs posteriorly, Physical examination showed clustered rash on erythematous surface at the right lower ribs and below right breast, slightly itchy and burning. Musculoskeletal, shingles, urinary tract infection, pneumonia, pulmonary emboli
[2022-10-28 12:34] LABS: Amorphous Sediment Urine Few; Mucus Urine Few /lpf; Squamous Epithelial Cell Urine Many /hpf (Few)
[2022-10-28 12:35] LABS: Add Urine Microscopic? YES
[2022-10-28 14:10] LABS: D Dimer 0.48 ug/mL (<0.48)
== END 2022-10-28 14:45 | disposition home or self-care (01) ==
PROVIDERS: Family Medicine; Emergency Provider Emergency Medicine; PCP Emergency Medicine
DX: O23.41 Unspecified infection of urinary tract in pregnancy, first trimester (principal); N39.0 Urinary tract infection, site not specified; O26.891 Other specified pregnancy related conditions, first trimester; D72.829 Elevated white blood cell count, unspecified; E87.1 Hypo-osmolality and hyponatremia; O98.511 Other viral diseases complicating pregnancy, first trimester; B02.9 Zoster without complications; Z3A.12 12 weeks gestation of pregnancy
CPT/HCPCS: 36415; 71045; 80053; 81001; 83690; 84702; 85025; 85380; 87086; 87088; 99283

== ENCOUNTER 2023-02-09 14:41 | Observation (INO) | payer OTHER, SELFPAY ==
[2023-02-09 15:54] VITALS: BMI 32.8
[2023-02-09 17:24] LABS: Appearance Urine Cloudy (Clear); Bacteria Urine 2+ /hpf; Bilirubin Urine Negative (Negative); Blood Urine Negative (Negative); Color Urine Dark Yellow (Yellow); Glucose Urine UA Negative (Negative); Ketones Urine Trace mg/dL (Negative); Leukocyte Esterase Ur 1+ LEU/UL (NEGATIVE); Nitrate Urine Negative (Negative); Non Pathogenic Casts 0-2; Protein Urine 1+ mg/dL (Negative); RBC Urine 0-2 /hpf (0-2); Specific Grav Ur 1.028 (1.001-1.035); Squamous Epithelial Cell Urine Many /hpf (Few); pH Urine 6.5 (5.0-9.0)
[2023-02-09 17:27] LABS: Add Urine Microscopic? YES
--- NOTE | 2023-02-11 07:27 | P.PNOB_ITS ---
OB - Triage/Final Diagnosis Visit Information Reason for evaluation: threatened labor Comments/Additional reasons for admission: I have assessed the risk for this patient, Jenifer Jesus, and determined that she would benefit from observation care. Evaluation Laboratory results: Laboratory Tests 02/09/23 15:51 Urine Color Dark yellow Urine Appearance Cloudy H Urine pH 6.5 Ur Specific [place] 1.028 Urine Protein 1+ H Urine Glucose (UA) Negative Urine Ketones Trace H Ur Blood (Man) Negative Urine Nitrate Negative Urine Bilirubin Negative Urine Urobilinogen 1.0 Ur Leukocyte Esterase 1+ H Urine RBC 0-2 Urine WBC 11-20 H Ur Squamous Epith Cells Many H Urine Bacteria 2+ H Urine Casts 0-2
== END 2023-02-09 17:05 | disposition home or self-care (01) ==
PROVIDERS: Admitting Provider Obstetrics & Gynecology; PCP Emergency Medicine; Visit Provider Obstetrics & Gynecology
DX: O47.02 False labor before 37 completed weeks of gestation, second trimester (principal); O26.892 Other specified pregnancy related conditions, second trimester; M54.9 Dorsalgia, unspecified; Z3A.26 26 weeks gestation of pregnancy
CPT/HCPCS: 81001; 87086; 87088; G0378; G0379

== ENCOUNTER 2023-03-05 15:36 | Emergency (ER) | payer OTHER, SELFPAY ==
[2023-03-05 15:44] VITALS: BP 124/69; PULSE 97; RESP 16; TEMP 36.7; O2SAT 98
--- NOTE | 2023-03-05 15:45 | ED.ANIMALBIT ---
HPI - Animal Bite General Chief Complaint: Animal Bite Stated Complaint: CAT BITE Time Seen by Provider: 03/05/23 15:37 Source: patient Mode of arrival: ambulatory Limitations: no limitations History of Present Illness HPI narrative: Patient is a 32-year-old female who presents with cat bite to left hand proximal to thumb at 1:30 pm. States it is a stray cat that was inside store that they were trying to get outside. Patient is 30 weeks . Tetanus shot updated last year. Denies any pain to thumb joints thick, tenderness where teeth punctured skin. Denies any drainage, swelling, redness. Has not taken anything for symptoms Related Data Allergies Allergy/AdvReac Type Severity Reaction Status Date / Time No Known Allergies Allergy Verified 03/05/23 15:47 Review of Systems Review of Systems: All systems reviewed & are unremarkable except as noted in HPI and below Constitutional: Constitutional: Denies body ache(s), Denies chills, Denies fatigue, Denies fever(s), Denies headache(s), Denies malaise and Denies weakness Eyes: Eyes: Denies blurry vision, Denies irritation and Denies loss of vision ENT: Denies otalgia, Denies headache(s), Denies nasal discharge, Denies sinus pain and Denies sore throat Cardiovascular: Cardiovascular: Denies chest pain, Denies irregular heart rhythm and Denies dyspnea Respiratory: Respiratory: Denies dyspnea Gastrointestinal: Gastrointestinal: Denies abdominal pain, Denies melena, Denies hematochezia, Denies diarrhea, Denies nausea and Denies vomiting Musculoskeletal: Musculoskeletal: Denies back pain, Denies myalgias and Denies arthralgias Integumentary/Breasts: Skin/Breast: Denies pruritus, Denies rash and Reports other (Cat bite) Neurologic: Denies headache(s), Denies loss of vision and Denies weakness Psychiatric: Psychiatric: Reports no additional psychiatric complaints Endocrine: Endocrine: Denies fatigue PMFSH Past Medical History Medical History (Updated 03/05/23 @ 16:04 by Heather Landry APRN) Frequent urination Suppression of menses Wrist joint pain Surgical History Surgical History H/O LEEP (~10/11/11) Family History Family History Father Hypertension Grandparent Diabetes mellitus Grandparent History of cancer Social History Social History Smoking packs per day: 0.5 Smoking cigarettes per day: 10.0 Years smoked: 15 Smoking pack-years: 7.50 Smoking status: Current every day smoker Tobacco type: cigarettes Second hand tobacco smoke exposure: Yes Additional smoking assessment comments: 1/2 pack a day Alcohol intake: never Substance use: current Substance use type: marijuana Living arrangements: with family Gender identity (if verbalized by the patient): Female Sexual Orientation (if Verbalized by the Patient): Straight or Heterosexual Spiritual care concerns: No Comments At time of signature, agree with nursing past medical, surgical, social and family history. There is no relevant family history pertinent to the presenting complaint. Exam Const: General: cooperative, healthy appearing, comfortable, no acute distress and well nourished Nutritional Appearance: well nourished Orientation/consciousness: patient oriented x3 Limitations: no limitations HENMT: Head: normal to inspection, normocephalic and atraumatic Ears: hearing grossly normal bilaterally and external ears normal Face/Nose/Sinus: Normal external nose present, normal facial exam and face symmetric Face and sinus: normal facial exam and face symmetric Mouth: Yes lip normal Eyes: General: appearance normal, both eyes and all related structures Alignment and Position: alignment normal and position normal Periorbital: periorbital findings normal Eyelids: eyelids normal Pupils: Equal
== END 2023-03-05 16:09 | disposition home or self-care (01) ==
PROVIDERS: Emergency Provider Nurse Practitioner Family; PCP Emergency Medicine
DX: S61.032A Puncture wound without foreign body of left thumb without damage to nail, initial encounter (principal); W55.01XA Bitten by cat, initial encounter; F17.210 Nicotine dependence, cigarettes, uncomplicated; F12.90 Cannabis use, unspecified, uncomplicated
CPT/HCPCS: 99213; G0463

== ENCOUNTER 2023-03-13 09:00 | Outpatient (RCR) | payer OTHER, SELFPAY ==
[2023-03-13 09:54] LABS: Basophils Absolute Auto 0.1 K/mm3 (0.0-0.1); Basophils Percent Auto 0.4 % (0.2-1.2); Eosinophils Absolute Auto 0.1 K/mm3 (0-0.3); Eosinophils Percent Auto 0.7 % (0-4.4); Hematocrit 28.2 % (37.0-47.0); Hemoglobin 9.1 g/dL (12.0-15.0); Immature Granulocyte Absolute 0.27 K/mm3 (0.00-0.031); Immature Granulocyte Percent A 2.1 % (0-0.5); Lymphocytes Absolute Auto 3.59 K/mm3 (0.9-3.2); Lymphocytes Percent Auto 27.3 % (18.3-44.2); Mean Corpuscular HGB Conc 32.3 g/dl (32-36); Mean Corpuscular Hemoglobin 29.9 pg (26-34); Mean Corpuscular Volume 92.8 fl (80-100); Mean Platelet Volume 9.3 fl (7.4-10.4); Monocytes Absolute Auto 0.9 K/mm3 (0.1-0.6); Monocytes Percent Auto 6.5 % (2.6-8.5); Neutrophils Absolute Auto 8.3 K/mm3 (1.3-6.7); Platelet Count Result 289 k/mm3 (150-375); Red Blood Count 3.04 M/mm3 (4.2-5.4); Red Cell Distribution Width 15.5 % (11.5-14.5); White Blood Count 13.2 K/mm3 (4.5-10.0)
[2023-03-13 10:08] LABS: Glucose 1 Hour PP 50gm Dose 84 mg/dL
[2023-03-13 10:47] LABS: HIV 1/2 Ab P24 Ag Result Negative (Negative)
[2023-03-16] MEDS: RHO(D) IMMUNE GLOBULIN 300 MCG/2 ML SYRINGE IM (15:30)
== END 2023-03-16 06:25 | disposition home or self-care (01) ==
LOC: ANHLAB 09:00
PROVIDERS: PCP Emergency Medicine; Visit Provider Obstetrics & Gynecology
DX: Z11.4 Encounter for screening for human immunodeficiency virus [HIV] (principal); Z29.13 Encounter for prophylactic Rho(D) immune globulin; O36.0190 Maternal care for anti-D [Rh] antibodies, unspecified trimester, not applicable or unspecified; Z3A.00 Weeks of gestation of pregnancy not specified
CPT/HCPCS: 36415; 82947; 85025; 85461; 86703; 86850; 86900; 86901; 90384; 96372; G0432; J2790

== ENCOUNTER 2023-03-20 13:57 | Observation (INO) | payer OTHER, SELFPAY ==
[2023-03-20] VITALS (24 sets, daily range): BP systolic 111–123; BP diastolic 52–70; PULSE 25–116; RESP 16; TEMP 37.3–37.4; O2SAT 80–100; BMI 33.6
[2023-03-20] MEDS: ONDANSETRON INJ 4 MG/2 ML VIAL IV PUSH (14:48)
[2023-03-20] MEDS: LACTATED RINGERS 1,000 ML 125 ML IV CONT (14:49)
[2023-03-20 15:11] LABS: Alanine Aminotransferase 14 U/L (6-35); Albumin Level 3.6 g/dL (3.5-5.1); Alkaline Phosphatase 95 U/L (38-126); Anion Gap 4 mmol/L (8-16); Aspartate Amino Transferase 18 U/L (14-36); Bilirubin,Total 0.7 mg/dL (0.2-1.3); Blood Urea Nitrogen 9 mg/dL (7-17); Calcium 8.6 mg/dL (8.4-10.2); Carbon Dioxide 23 mmol/L (22-30); Chloride 110 mmol/L (98-107); Estimated Glomerular Filt Rate > 60; Glucose 86 mg/dL (65-110); Potassium 3.5 mmol/L (3.4-5.0); Sodium 137 mmol/L (137-145)
[2023-03-20] MEDS: TERBUTALINE SULFATE 1 MG/ML VIAL 0.25 MG SUB-Q (16:19)
[2023-03-20 16:41] LABS: Appearance Urine Clear (Clear); Bacteria Urine 1+ /hpf; Bilirubin Urine Negative (Negative); Blood Urine Negative (Negative); Color Urine Yellow (Yellow); Glucose Urine UA Negative (Negative); Ketones Urine 1+ mg/dL (Negative); Leukocyte Esterase Ur 1+ LEU/UL (NEGATIVE); Nitrate Urine Negative (Negative); Non Pathogenic Casts 0-2; Protein Urine 1+ mg/dL (Negative); RBC Urine 0-2 /hpf (0-2); Specific Grav Ur 1.021 (1.001-1.035); Squamous Epithelial Cell Urine Moderate /hpf (Few)
[2023-03-20 16:43] LABS: Add Urine Microscopic? YES
[2023-03-20 17:03] LABS: Fetal Fibronectin Negative
[2023-03-20] MEDS: PROCHLORPERAZINE MALEATE 5 MG TABLET PO (17:55)
[2023-03-20] MEDS: DEXTROSE 5%/LACTATED RINGERS 1,000 ML 200 ML IV CONT (17:55)
--- NOTE | 2023-03-20 19:46 | PC.NURSE ---
Patient resting comfortably. Patient denies nausea or any additional episodes of emesis since 1817. Patient tolerating ice chips.
--- NOTE | 2023-03-20 19:55 | PC.NURSE ---
Call Dr. Blood with update on maternal assessment. Patient experienced 1 episode of emesis at 1818 and has had no further episodes. Patient tolerating ice chips without complaint of nausea. Discharge orders received.
--- NOTE | 2023-03-20 20:16 | PC.NURSE ---
2015- Discharge instructions reviewed with patient. [place] diet discussed and patient instructed to maintain bland diet until nausea resolved without medications. Discharge medications discussed and patient educated on rectal compazine PRN medication prescription. 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 labor precautions and kick counts reviewed with patient and patient provided with educational handouts for both. Patient states understanding of all discharge instructions and denies any further questions. Patient instructed to follow up as scheduled with Dr. Jerry. Patient instructed to return to OB unit if symptoms worsen or if she has any concerns. Patient tolerating crackers, ice and clear fluids at time of discharge without nausea or emesis. Patient agrees to discharge and denies questions. 2019- Patient left ambulating OB unit.
--- NOTE | 2023-04-09 11:54 | P.PNOB_ITS ---
OB - Triage/Final Diagnosis Visit Information Comments/Additional reasons for admission: I have assessed the risk for this patient, Jenifer Jesus, and determined that she would benefit from observation care. Evaluation Laboratory results: Laboratory Tests 03/20/23 03/20/23 14:47 16:17 Sodium 137 Potassium 3.5 Chloride 110 H Carbon Dioxide 23 Anion Gap 4 L BUN 9 Creatinine 0.50 L Estim Creat Clear Calc Not Reportable Estimated GFR > 60 Glucose 86 Calcium 8.6 Total Bilirubin 0.7 AST 18 ALT 14 Alkaline Phosphatase 95 Total Protein 7.0 Albumin 3.6 Urine Color Yellow Urine Appearance Clear Urine pH 7.0 Ur Specific [place] 1.021 Urine Protein 1+ H Urine Glucose (UA) Negative Urine Ketones 1+ H Ur Blood (Man) Negative Urine Nitrate Negative Urine Bilirubin Negative Urine Urobilinogen 1.0 Ur Leukocyte Esterase 1+ H Urine RBC 0-2 Urine WBC 6-10 Ur Squamous Epith Cells Moderate Urine Bacteria 1+ H Urine Casts 0-2 Fibronectin Negative Final Diagnosis (1) Nausea and vomiting during : Code(s): O21.9 - Vomiting of , unspecified Status: Acute
== END 2023-03-20 20:20 | disposition home or self-care (01) ==
PROVIDERS: Admitting Provider Obstetrics & Gynecology; PCP Emergency Medicine; Visit Provider Obstetrics & Gynecology
DX: O21.2 Late vomiting of pregnancy (principal); Z3A.32 32 weeks gestation of pregnancy
CPT/HCPCS: 36415; 80053; 81001; 82731; 87086; 87088; 96372; 96374; A9270; G0378; G0379; J2405; J3105; J7120; J7121

== ENCOUNTER 2023-04-26 13:21 | Observation (INO) | payer OTHER, SELFPAY ==
--- NOTE | ~2023-04-26 | US_ITS ---
EXAMINATION: US OB limited w BPP DATE: 04/26/2023 15:27 INDICATION: Nonreactive NST, evaluate BPP with KIRTI. TECHNIQUE: Real-time ultrasound of the pelvis was performed. COMPARISON: 04/09/2023. FINDINGS: There is a single living fetus in vertex presentation, longitudinal lie. The placenta is anterior. F etal heart rate is 142 bpm. The amniotic fluid index is 10.0 cm, which is normal (5th to 95th percent ile is 7.7 to 24.9 cm). Of note, KIRTI was somewhat difficult to measure given significant activi ty. Biophysical profile performed by the technologist: breathing (30 sec sustained breathing in 30 minutes): 2 out of 2. movement (3 gross body movements in 30 minutes: 2 out of 2. tone (one episode of gtodoth-[id number] limb movement): 2 out of 2. Amniotic fluid pocket (2 cm): 2 out of 2. Total score: 8 out of 8. IMPRESSION: Single living fetus in vertex presentation. Biophysical profile 8 out of 8. Normal KIRTI of 10.0 cm. Reviewed, dictated and finalized at location K.
[2023-04-26 13:45] VITALS: BP 120/74; PULSE 92
[2023-04-26 13:49] VITALS: BMI 33.3
--- NOTE | 2023-04-26 13:50 | OBADM ---
This patient, Jeniefr Jesus, admitted to the OB room [facility] for observation. Patient/family oriented to hospital policies and general routines including ID bracelet, bed and alarms, visiting hours, pain management, procedures, bathroom and other care routines, personal items, smoking policy, room service/diet, and visiting hours. Patient/Family are encouraged to report perceived risks to care and to ask questions if they do not understand what they are told or what they should do. Pt. presents with reports of cramping and back pain since approx. 0800 this a.m. when she was at work. Pt. states she has been feeling baby move, she denies bleeding and LOF. She reports that she has had 2 bottles of water today and a Sprite. She is a and 37.0 weeks gestation today.
[2023-04-26 13:58] LABS: Appearance Urine Cloudy (Clear); Bacteria Urine 1+ /hpf; Bilirubin Urine Negative (Negative); Blood Urine Negative (Negative); Color Urine Dark Yellow (Yellow); Glucose Urine UA Negative (Negative); Ketones Urine Trace mg/dL (Negative); Leukocyte Esterase Ur 2+ LEU/UL (Negative); Nitrate Urine Negative (Negative); Non Pathogenic Casts 0-2; Protein Urine Trace mg/dL (Negative); RBC Urine 0-2 /hpf (0-2); Squamous Epithelial Cell Urine Moderate /hpf (Few)
[2023-04-26 14:00] VITALS: BP 109/64; PULSE 87
[2023-04-26 14:12] LABS: Add Urine Microscopic? YES
[2023-04-26 14:15] VITALS: BP 116/74; PULSE 84
[2023-04-26 14:30] VITALS: BP 110/74; PULSE 92
--- NOTE | 2023-04-28 14:39 | P.PNOB_ITS ---
OB - Triage/Final Diagnosis Visit Information Comments/Additional reasons for admission: I have assessed the risk for this patient, Jenifer Jesus, and determined that she would benefit from observation care. Evaluation Laboratory results: Laboratory Tests 04/26/23 13:43 Urine Color Dark yellow Urine Appearance Cloudy H Urine pH 7.0 Ur Specific [place] 1.020 Urine Protein Trace Urine Glucose (UA) Negative Urine Ketones Trace H Ur Blood (Man) Negative Urine Nitrate Negative Urine Bilirubin Negative Urine Urobilinogen 1.0 Leukocyte Esterase Rfl 2+ H Urine RBC 0-2 Urine WBC 11-20 H Ur Squamous Epith Cells Moderate Urine Bacteria 1+ H Urine Casts 0-2 Final Diagnosis (1) False labor after 37 completed weeks of gestation: Code(s): O47.1 - False labor at or after 37 completed weeks of gestation Status: Acute
== END 2023-04-26 16:05 | disposition home or self-care (01) ==
LOC: ANHLDR 13:29 → ANHOBPP 13:32
PROVIDERS: Admitting Provider Obstetrics & Gynecology; PCP Emergency Medicine; Visit Provider Obstetrics & Gynecology
DX: O47.1 False labor at or after 37 completed weeks of gestation (principal); Z3A.37 37 weeks gestation of pregnancy
CPT/HCPCS: 76815; 76819; 81001; 87086; G0378; G0379

== ENCOUNTER 2023-05-10 05:56 | Inpatient (IN) | payer OTHER, SELFPAY ==
[2023-05-10] VITALS (149 sets, daily range): BP systolic 86–132; BP diastolic 43–79; PULSE 67–234; RESP 16; TEMP 36.1–37.1; O2SAT 96–100; BMI 33.6
--- NOTE | 2023-05-10 06:41 | LDADM ---
This patient, Jenifer Jesus, was admitted to Labor/Delivery/Recovery 104 on 05/10/23 at 05:56. Plans for labor, pain management and were discussed with patient. Patient/family oriented to hospital policies and general routines including ID bracelet, bed and alarms, visiting hours, pain management, procedures, bathroom and other care routines, personal items, smoking policy, room service/diet and guest tray routines, security routines, and visiting hours. Patient/Family are encouraged to report perceived risks to care and to ask questions if they do not understand what they are told or what they should do. See OBIX for further documentation.
[2023-05-10 06:46] LABS: Basophils Absolute Auto 0.1 K/mm3 (0.0-0.1); Basophils Percent Auto 0.5 % (0.2-1.2); Eosinophils Absolute Auto 0.1 K/mm3 (0-0.3); Eosinophils Percent Auto 0.7 % (0-4.4); Hematocrit 27.4 % (37.0-47.0); Hemoglobin 8.4 g/dL (12.0-15.0); Immature Granulocyte Absolute 0.26 K/mm3 (0.00-0.031); Immature Platelet Fraction Pct 4.2 % (0.9-11.2); Lymphocytes Absolute Auto 3.44 K/mm3 (0.9-3.2); Lymphocytes Percent Auto 27.1 % (18.3-44.2); Mean Corpuscular HGB Conc 30.7 g/dl (32-36); Mean Corpuscular Hemoglobin 28.6 pg (26-34); Mean Corpuscular Volume 93.2 fl (80-100); Mean Platelet Volume 10.1 fl (7.4-10.4); Monocytes Absolute Auto 0.8 K/mm3 (0.1-0.6); Monocytes Percent Auto 6.1 % (2.6-8.5); Neutrophils Absolute Auto 8.1 K/mm3 (1.3-6.7); Neutrophils Percent Auto 63.6 % (45.5-73.1); Nucleated Red Blood Cells Perc 0.2 % (0.0-0.2); Platelet Count Result 253 k/mm3 (150-375); Red Blood Count 2.94 M/mm3 (4.2-5.4); Red Cell Distribution Width 17.1 % (11.5-14.5); White Blood Count 12.7 K/mm3 (4.5-10.0)
[2023-05-10] MEDS: LACTATED RINGERS 1,000 ML 125 ML IV CONT ×2 (06:50→08:16)
[2023-05-10] MEDS: AMPICILLIN 2 GM/NS 100 ML 2 GM/100 ML BAG IVPB (06:51)
--- NOTE | 2023-05-10 07:08 | PM.IMHP ---
H&P: HPI History of Present Illness Date/Time: 05/10/23 07:08 Chief Complaint: induction of labor Narrative: Jenifer is a @ 39.0wks (JOHNATHAN 05/17/23) who presents to L&D for elective IOL. She reports good movement. Irregular contractions. No vaginal bleeding or leakage of fluid. She has had regular care. Her is complicated by: - Rh neg; s/p rhogam - Anemia; hgb 9.1-- iron BID - Grandmultiparity - Undesired future fertility; [place] signed 03/17/23 - GBS POSITIVE Review of Systems Constitutional: Constitutional: Denies chills, Denies fever(s) and Denies headache(s) Eyes: Eyes: Denies change in vision ENT: Denies headache(s) Cardiovascular: Cardiovascular: Denies chest pain and Denies dyspnea Respiratory: Respiratory: Denies dyspnea Genitourinary: Genitourinary: Denies abnormal vaginal bleeding and Denies vaginal discharge Neurologic: Denies headache(s) Psychiatric: Psychiatric: Denies anxiety and Denies depression [facility] Past Medical History Medical History Frequent urination Suppression of menses Wrist joint pain Surgical History Surgical History H/O LEEP (~10/11/11) Family History Family History Father Hypertension Grandparent Diabetes mellitus Grandparent History of cancer Mother Liver cancer Social History Social History Smoking packs per day: 1 Smoking cigarettes per day: 20.0 Years smoked: 15 Smoking pack-years: 15.00 Smoking status: Current every day smoker Tobacco type: cigarettes Second hand tobacco smoke exposure: Yes Additional smoking assessment comments: 1/2 pack a day Alcohol intake: never Substance use: current Substance use type: marijuana Lack of Transportation: No Lack of Food: Never True Current Housing: I Have Housing Concerned About Future Housing: No Difficulty Paying Gas/Electric Bills: No Difficulty Paying for Meds: No Currently Unemployed: No Education: High School Diploma/GED Difficulty w/ Childcare or Family Care: No Living arrangements: with family Gender identity (if verbalized by the patient): Female Sexual Orientation (if Verbalized by the Patient): Straight or Heterosexual Spiritual care concerns: No Meds Home Medications and Allergies Home Medications Medication Instructions Recorded Confirmed Type vitamin no.102-iron 90 1 cap PO DAILY #90 caps 02/09/23 05/10/23 Rx mg-folate 1 mg-dha 200 mg capsule ferrous sulfate 325 mg (65 mg 325 mg PO DAILY #60 tabs 03/17/23 05/10/23 Rx iron) tablet (Feosol) Allergies Allergy/AdvReac Type Severity Reaction Status Date / Time No Known Allergies Allergy Verified 05/10/23 06:45 Vital Signs Vital Signs - 24 hr 05/10/23 06:20 05/10/23 06:31 05/10/23 07:01 Pulse Rate 86 88 86 Blood Pressure 115/65 122/66 118/71 Oxygen Delivery 05/10/23 06:39 Pulse Rate Blood Pressure Oxygen Delivery Room Air Exam Const: General: cooperative, comfortable, no acute distress and obese Nutritional Appearance: obese Orientation/consciousness: patient oriented x3 Resp: Effort & Inspection: normal respiratory effort Cardio: Rate: regular rate GI: GI Palp: No abdominal tenderness : Other: FHT's: 140's/ mod allyson/ + accels/ no decels - cat 1 TOCO: ctxs q2-3min Cervix: 4/50/-3 Membranes: intact Presentation: cephalic Skin: General skin exam: normal color Neuro: General: patient oriented x3 Extrem: General: normal to inspection Psych: Appearance: grossly normal Affect: normal affect Attitude: cooperative H&P: Results Labs Labs: Short CBC 05/10/23 Range/Units 06:24 WBC 12.7 H (4.5-10.0) K/mm3 Hgb 8.4 L (12.0-15.0) g/dL Hct 27.4 L (37.0-47.
--- NOTE | 2023-05-10 07:20 | WPDHPUPDATE1 ---
History and Physical Update Update Date/Time: 05/10/23 07:20 History and Physical has been reviewed, including an updated exam of the patient. There are NO changes in the patient's condition. Risks, benefits, and alternatives have been discussed and questions answered. Patient agrees to proceed with procedure.
[2023-05-10] MEDS: OXYTOCIN 30 UNITS/NS 500 ML 30 UNITS/500 ML BAG IV CONT (07:24)
--- NOTE | 2023-05-10 09:29 | WPDANESEPPF ---
Anes - Initial Pre Proc Eval Procedure: labor epidural Date/Time: 05/10/23 09:29 Surgeon: Nuria Jerry MD Pre Op Diagnosis: labor pain Pre Op Diagnosis: IOL Patient Data Age: 32 Gender: F Height: 1.7 m Weight: 97.5 kg Last Vital Signs Temp 36.5 C 05/10/23 08:59 Pulse 80 05/10/23 09:16 BP 100/51 L 05/10/23 09:16 Pulse Ox 100 05/10/23 09:26 O2 Del Method Room Air 05/10/23 06:39 Allergies Allergy/AdvReac Type Severity Reaction Status Date / Time No Known Allergies Allergy Verified 05/10/23 06:45 Home Medications Medication Instructions Recorded Confirmed Type acetaminophen 325 mg tablet (Mapap 650 mg PO Q6H PRN Mild Pain (1-3) 05/11/23 Rx (acetaminophen)) Or Headache #60 tabs docusate sodium 100 mg capsule 100 mg PO BID PRN Constipation 05/11/23 Rx #120 caps ferrous sulfate 325 mg (65 mg 325 mg PO DAILY #90 tabs 05/11/23 Rx iron) tablet (Feosol) ibuprofen 600 mg tablet 600 mg PO Q6H PRN Cramping #40 tabs 05/11/23 Rx Laboratory Tests 05/10/23 06:24 WBC 12.7 H K/mm3 (4.5-10.0) RBC 2.94 L M/mm3 (4.2-5.4) Hgb 8.4 L g/dL (12.0-15.0) Hct 27.4 L % (37.0-47.0) MCV 93.2 fl (80-100) MCH 28.6 pg (26-34) MCHC 30.7 L g/dl (32-36) RDW 17.1 H % (11.5-14.5) Plt Count 253 k/mm3 (150-375) MPV 10.1 fl (7.4-10.4) Immature Gran % (Auto) 2.0 H % (0-0.5) Neut % (Auto) 63.6 % (45.5-73.1) Lymph % (Auto) 27.1 % (18.3-44.2) Waller % (Auto) 6.1 % (2.6-8.5) Eos % (Auto) 0.7 % (0-4.4) Baso % (Auto) 0.5 % (0.2-1.2) Lymph # (Auto) 3.44 H K/mm3 (0.9-3.2) Waller # (Auto) 0.8 H K/mm3 (0.1-0.6) Eos # (Auto) 0.1 K/mm3 (0-0.3) Baso # (Auto) 0.1 K/mm3 (0.0-0.1) Abs Immat Gran (auto) 0.26 H K/mm3 (0.00-0.031) Absolute Neuts (auto) 8.1 H K/mm3 (1.3-6.7) Absolute Nucleated RBC 0.0 K/mm3 (0.0-0.012) Nucleated RBC % 0.2 % (0.0-0.2) % Immature Plt Fraction 4.2 % (0.9-11.2) RPR Pending Blood Type O Negative Antibody Screen Positive Antibody Identification Pending Antigen Identification Pending RUTH, IgG Interpret Pending RUTH, Poly Interpret Pending RUTH, Complement Interp Pending Patient hx anesthesia problems: none Family hx anesthesia problems: none Results Review: All pre-operative results and documents have been reviewed as part of the pre-operative evaluation. [facility] Past Medical History Medical History Frequent urination Suppression of menses Wrist joint pain Surgical History Surgical History H/O LEEP (~10/11/11) Family History Family History Father Hypertension Grandparent Diabetes mellitus Grandparent History of cancer Mother Liver cancer Social History Social History Smoking packs per day: 1 Smoking cigarettes per day: 20.0 Years smoked: 15 Smoking pack-years: 15.00 Smoking status: Current every day smoker Tobacco type: cigarettes Second hand tobacco smoke exposure: Yes Additional smoking assessment comments: 1/2 pack a day Alcohol intake: never Substance use: current Substance use type: marijuana Lack of Transportation: No Lack of Food: Never True Current Housing: I Have Housing Concerned About Future Housing: No Difficulty Paying Gas/Electric Bills: No Difficulty Paying for Meds: No Currently Unemployed: No Education: High School Diploma/GED Difficulty w/ Childcare or Family Care: No Living arrangements: with family Gender identity (if verbalized by the patient): Female Sexual Orientation (if Verbalized by the Patient): Straight or Heterosexual Spiritual care concerns: No Anes - Eval Final PreProcedu
[2023-05-10] MEDS: AMPICILLIN 1 GM/NS 50 ML 1 GM/50 ML BAG IVPB ×2 (11:03→15:30)
[2023-05-10 14:19] LABS: Rapid Plasma Reagin Non-Reactive (NonReactive)
[2023-05-10] MEDS: miSOPROStol 200 MCG TABLET 800 MCG (16:15)
--- NOTE | 2023-05-10 16:31 | P.PCNOB_ITS ---
OB - Delivery Note Procedure Delivery date: 05/10/23 Events: Elective Induction of Labor Induction method: Per Pitocin Protocol Delivery augmentation: Rupture of Membranes Delivery monitor: External FHT and External Uterine Route of delivery: Laceration Description: None Quantitative Blood Loss (ml): 100 Anesthesia type: Epidural Disposition: Floor Baby Date of : 05/10/23 Time of : 16:06 Weeks of gestation at delivery: 39 Infant gender: Female Weight (pounds): 7 Weight (ounces): 5 presentation: vertex Placenta delivery description: Expressed Cord Vessel Description: 3 Vessels and Delayed Cord Clamping score one minute: 9 score five minutes: 9 Narrative: Jenifer progressed to complete dilation strong desire to push. She pushed twice and delivered the head over intact perineum. No nuchal cord was palpated. She easily delivered the infant's shoulders and body without complication. The had spontaneous cry and was immediately placed skin to skin. Delayed cord clamping was performed. The umbilical cord was then doubly clamped and cut. A segment of cord was collected for cord gases. The remaining cord blood was collected for typing. With Pitocin infusing and gentle downward traction on the cord, the placenta delivered without complications. Bimanual massage was performed and good uterine tone with minimal bleeding was noted. She was examined and no lacerations were identified. Cytotec 800 mcg was placed rectally to prevent bleeding due to her grand multiparity and severe anemia. S ponge, lap, instrument, needle counts were correct at the end of the procedure. Mom and baby were left bonding in the birthing suite in a stable condition. [facility] Delivery Billing Delivery Delivery: Delivery Charge
[2023-05-10] MEDS: OXYTOCIN 30 UNITS/NS 500 ML 30 UNITS/500 ML BAG 125 UNITS IV CONT (16:37)
[2023-05-10] MEDS: IBUPROFEN 600 MG TABLET PO (18:41)
[2023-05-10] MEDS: ACETAMINOPHEN 325 MG TABLET 650 MG PO (20:18)
[2023-05-11] MEDS: IBUPROFEN 600 MG TABLET PO ×2 (01:54→07:43)
[2023-05-11 03:30] VITALS: BP 102/51; PULSE 67; RESP 16; TEMP 36.8; O2SAT 99
[2023-05-11 04:04] LABS: Hematocrit 26.9 % (37.0-47.0); Hemoglobin 8.4 g/dL (12.0-15.0)
[2023-05-11] MEDS: IRON SUCROSE COMPLEX 500 MG in SODIUM CHLORIDE 0.9% IV 250 ML 78.57 MG IVPB (05:42)
--- NOTE | 2023-05-11 07:21 | P.PNOB_ITS ---
OB - PN: Subj Subjective Date/time seen: 05/11/23 07:21 Narrative: PPD#1 Jenifer reports doing well today. Her bleeding is hides and skins colorer. Her pain is controlled. She is tolerating regular diet, voiding, passing gas, and ambulating without issues. She is bottle feeding. She would like to go home this evening if her daughter is discharged. OB - PN: Obj Data Labs 05/11/23 03:36 Labs: Laboratory Results - last 24 hr 05/10/23 05/11/23 06:24 03:36 Hgb 8.4 L Hct 26.9 L RPR Non-reactive Blood Type O Negative Antibody Screen Positive Antibody Identification Inconclusive Antigen Identification TNP RUTH, IgG Interpret Not Performed RUTH, Poly Interpret Neg RUTH, Complement Interp Not Performed OB - PN A/P Assessment and Plan (1) Normal vaginal delivery: Code(s): O80 - Encounter for full-term uncomplicated delivery Status: Acute (2) Anemia: Code(s): D64.9 - Anemia, unspecified Status: Acute Plan day: 1 Plan: routine care and discharge home (this PM) Comments: - s/p IV iron - Pelvic rest; take meds as prescribed - ER return precautions: fever, n/v/abd pain, bleeding, HTN Time Spent With Patient Time: Total time spent is greater than 50% in coordination of care (as documented) at patient's floor/unit and/or counseling patient: Review of Systems Constitutional: Constitutional: Denies chills, Denies fever(s) and Denies headache(s) Eyes: Eyes: Denies change in vision ENT: Denies dizziness and Denies headache(s) Cardiovascular: Cardiovascular: Denies chest pain, Denies palpitations and Denies dyspnea Respiratory: Respiratory: Denies cough and Denies dyspnea Gastrointestinal: Gastrointestinal: Denies nausea and Denies vomiting Neurologic: Denies dizziness and Denies headache(s) Endocrine: Endocrine: Denies palpitations Exam Const: General: cooperative, comfortable, no acute distress and obese Orientation/consciousness: patient oriented x3 Resp: Effort & Inspection: normal respiratory effort Auscultation: clear to auscultation bilaterally Cardio: Rate: regular rate GI: Inspection: non-distended GI Palp: No abdominal tenderness and Yes Soft to palpation Auscultation: normal bowel sounds : Other: fundus firm Skin: General skin exam: normal color Neuro: General: patient oriented x3 Extrem: General: normal to inspection Psych: Appearance: grossly normal Affect: normal affect Attitude: cooperative
[2023-05-11] MEDS: POLYSACCHARIDE IRON COMPLEX 150 MG CAPSULE PO (07:43)
[2023-05-11] MEDS: DOCUSATE SODIUM 100 MG CAPSULE PO (07:43)
[2023-05-11 08:20] VITALS: BP 111/66; PULSE 70; RESP 18; TEMP 37.7; O2SAT 100
--- NOTE | 2023-05-11 10:35 | PC.NURSE ---
Patient viewed the discharge video Mother & Baby Care, The First Two Weeks . Patient was given the opportunity and encouraged to ask questions. Patient verbalized understanding of information shared and has been given the mother/baby guide for home reference.
--- NOTE | 2023-05-11 10:49 | WPDANLDPN2 ---
Anes-Prog Note L&D Date/Time: 05/11/23 10:49 Neuro status: Neuro function grossly intact. Vital Signs: Last Vital Signs Temp 37.7 C H 05/11/23 08:20 Pulse 70 05/11/23 08:20 Resp 18 05/11/23 08:20 BP 111/66 05/11/23 08:20 Pulse Ox 100 05/11/23 08:20 O2 Del Method Room Air 05/10/23 06:39 Pain score (VAS): 0 I/O: Intake & Output 05/10/23 05/11/23 05/11/23 23:59 07:59 15:59 Intake Total 240 Output Total 175 Balance -175 240 Patient feedback: Patient satisfied with anesthetic care.
[2023-05-11 12:05] VITALS: BP 112/69; PULSE 69; RESP 18; TEMP 37.1; O2SAT 99
--- NOTE | 2023-05-12 12:37 | PM.OBDSVD ---
DS: Admitting Diagnosis Discharge Date 05/11/23 Admitting Diagnosis elective induction of labor gbs positive grandmultiparity DS: Discharge Diagnosis Discharge Diagnosis (1) Normal vaginal delivery: Code(s): O80 - Encounter for full-term uncomplicated delivery Status: Acute OB - DS: Summary OB Procedures : Ultrasound OB Procedures Intrapartum: Spontaneous Vag Delivery OB Procedures: : Other (IV iron infusion; venofer 500mg IV once) Peripartum Data Infant Delivery Method: Natural Vaginal Laceration Description: None complications: none [place] 1: Gender: Female Disposition of : home Status at Discharge Functional status at discharge: independent ambulation Overall status at discharge: patient is back to baseline Time Spent with Patient Time attestation: Total time spent providing and/or coordinating discharge services: Time spent: Less than 30 minutes Exam Const: General: cooperative, comfortable and no acute distress Orientation/consciousness: patient oriented x3 Resp: Effort & Inspection: normal respiratory effort Auscultation: clear to auscultation bilaterally Cardio: Rate: regular rate GI: Inspection: non-distended GI Palp: No abdominal tenderness and Yes Soft to palpation Auscultation: normal bowel sounds : Other: fundus firm Skin: General skin exam: normal color Neuro: General: patient oriented x3 Extrem: General: normal to inspection Psych: Appearance: grossly normal Affect: normal affect Attitude: cooperative Discharge Plan Discharge Attending physician on discharge: Nuria Jerry Consulting providers: Ronnie Corral; Miladis Becker Discharging Clinician: Nuria Jerry Anticipated Discharge Date/Time: 05/11/23 18:00 Patient Disposition: Home, Self-Care Activity: may shower and pelvic rest Diet: regular Discharge Instructions: Education: Mom and Baby Guide Given to: Mother Follow-Up: Call your delivering provider's office for an appointment to be seen in: 4 Weeks Mom [facility] follow-up appointment. Appointment Date/Time: May 13, 2023 at 11:00 am What to expect at your follow-up visit: Physical Assessment Call [phone] if you are unable to keep your appointment time. BREAST CARE: * Wear a snug supportive bra. * For engorgement discomfort: Bottle Feeding: * May apply ice packs EPISIOTOMY/PERINEAL CARE: * Until bleeding stops, use your ayde bottle after urinating * Change your pad frequently throughout the day * No tub baths until seen by your physician - You may shower ACTIVITY: * Rest as much as possible. * Do not exercise or lift anything heavier than your baby (such as laundry or other children.) * Avoid stairs or driving as much as possible. * Do not put anything into the vagina. No douching, tampons, or sexual activity until seen by physician. NOTIFY PHYSICIAN IF YOU HAVE ANY QUESTIONS OR IF ANY OF THE FOLLOWING SYMPTOMS OCCUR: * If your perineum becomes red, swollen, or more painful than what you have experienced in the hospital. * If your vaginal bleeding becomes foul smelling. * If your vaginal bleeding becomes more heavy than a period or if your bleeding changes from pink to bright red. However, you may pass an occasional walnut-sized clot once or twice for the first week . * If you experience a sharp, shooting pain in you calves. * If you discover a hard, reddened area on your breast or if you experience flu-like symptoms. DIET: * Eat regular, well-balanced meals. * Drink plenty of fluids daily. If , drink to thirst. Patient Instructions: How to Stop Smoking (DC) Stand Alone Forms: General Discharge Information Follow-up/Referrals: Nuria Jerry MD [Physician] - 4 Weeks Discharge Medications: New acetaminophen [Mapap (a
[2023-05-13 11:15] VITALS: BP 117/74; PULSE 86; RESP 18; TEMP 36.9; O2SAT 98
== END 2023-05-11 17:25 | disposition home or self-care (01) | DRG 560 ==
LOC: ANHLDR 06:04 → ANHOB2 19:11
PROVIDERS: Admitting Provider Obstetrics & Gynecology; PCP Emergency Medicine; Visit Provider Obstetrics & Gynecology
DX: O99.824 Streptococcus B carrier state complicating childbirth (principal); Z37.0 Single live birth; F17.210 Nicotine dependence, cigarettes, uncomplicated; O99.02 Anemia complicating childbirth; O99.334 Smoking (tobacco) complicating childbirth; Z3A.39 39 weeks gestation of pregnancy; Z67.91 Unspecified blood type, Rh negative
CPT/HCPCS: 36415; 85014; 85018; 85025; 85055; 86592; 86850; 86880; 86900; 86901; 86902; A9270; J0290; J1756; J2590; J2795; J7050; J7120

== ENCOUNTER 2023-05-14 19:34 | Emergency (ER) | payer OTHER, SELFPAY ==
--- NOTE | 2023-05-14 19:40 | ED.EXTPRO ---
HPI - Extremity Problem General Chief complaint: Extremity Problem,Nontraumatic Stated complaint: R ARM SWELLING/REDNESS S/P IV Time Seen by Provider: 05/14/23 19:40 Source: patient Mode of arrival: ambulatory Limitations: no limitations History of Present Illness HPI Narrative: 32 yo F presents with redness, swelling and pain to R forearm where she had IV placed. Pt had vaginal delivery without complication on 05/10. Has had IV site symptoms for approx. 2 days. Afebrile. Not . All systems reviewed and negative except as noted above. Related Data Allergies Allergy/AdvReac Type Severity Reaction Status Date / Time No Known Allergies Allergy Verified 05/14/23 19:39 Review of Systems Review of Systems: CONSTITUTIONAL: Denies fever, chills, or sweats. EYES: Denies visual changes, redness, or discharge. ENT: Denies rhinorrhea, congestion, sore throat, or otalgia. CARDIOVASCULAR: Denies chest pain, palpitations, or edema. RESPIRATORY: Denies cough or dyspnea. GASTROINTESTINAL: Denies abdominal pain, nausea, vomiting, or diarrhea. GENITOURINARY: Denies dysuria or hematuria. SKIN: Denies rash or itching. Reports redness, pain, warmth and swelling to right forearm. MUSCULOSKELETAL: Denies back pain, joint pain, or myalgia. NEUROLOGIC: Denies headache, numbness, or weakness. PSYCHIATRIC: Denies anxiety or depression. All other systems reviewed are negative, except as documented in HPI. [facility] Past Medical History Medical History Frequent urination Suppression of menses Wrist joint pain Surgical History Surgical History H/O LEEP (~10/11/11) Family History Family History Father Hypertension Grandparent Diabetes mellitus Grandparent History of cancer Mother Liver cancer Social History Social History Smoking packs per day: 1 Smoking cigarettes per day: 20.0 Years smoked: 15 Smoking pack-years: 15.00 Smoking status: Current every day smoker Tobacco type: cigarettes Second hand tobacco smoke exposure: Yes Additional smoking assessment comments: 1/2 pack a day Alcohol intake: never Substance use: current Substance use type: marijuana Lack of Transportation: No Lack of Food: Never True Current Housing: I Have Housing Concerned About Future Housing: No Difficulty Paying Gas/Electric Bills: No Difficulty Paying for Meds: No Currently Unemployed: No Education: High School Diploma/GED Difficulty w/ Childcare or Family Care: No Living arrangements: with family Gender identity (if verbalized by the patient): Female Sexual Orientation (if Verbalized by the Patient): Straight or Heterosexual Spiritual care concerns: No Comments At time of signature, agree with nursing past medical, surgical, social and family history. There is no relevant family history pertinent to the presenting complaint. Exam Narrative: GENERAL: This is a well-nourished, well-developed patient, in no apparent distress. HEAD: normocephalic, atraumatic. EYES: PERRL. Sclera clear/white. Vision is grossly intact. EARS: External ears normal NOSE: External nose normal NECK: Neck supple, non-tender without lymphadenopathy, masses or thyromegaly. CARDIOVASCULAR: Regular rate and rhythm without murmurs, gallops, or rubs. RESPIRATORY: Clear to auscultation. Breath sounds equal bilaterally. No wheezes, rales, or rhonchi. SKIN: warm, Dry, intact with no suspicious lesions or rash, good texture and turgor. erythema and swelling to medial aspect R forearm approx. 10.5x 6cm. warm and tender to touch. no fluctuance or drainage. NEURO: awake, alert, and oriented to person, place and time. There were no obvious focal neurologic abnormalities. EXTREMITIES: No joint tenderness, effusion
[2023-05-14 19:41] VITALS: BP 124/78; PULSE 107; RESP 16; TEMP 36.4; O2SAT 98
== END 2023-05-14 19:48 | disposition home or self-care (01) ==
PROVIDERS: Emergency Provider Nurse Practitioner Family; PCP Emergency Medicine
DX: O87.0 Superficial thrombophlebitis in the puerperium (principal); O99.335 Smoking (tobacco) complicating the puerperium; F17.210 Nicotine dependence, cigarettes, uncomplicated; O99.325 Drug use complicating the puerperium; F12.90 Cannabis use, unspecified, uncomplicated
CPT/HCPCS: 99213; G0463

== ENCOUNTER 2023-12-10 15:49 | Emergency (ER) | payer OTHER, SELFPAY ==
[2023-12-10 15:58] VITALS: BP 133/87; PULSE 110; RESP 16; TEMP 36.8; O2SAT 100
--- NOTE | 2023-12-10 16:06 | ED.DENTAL ---
HPI - Dental/Oral General Chief complaint: Dental/Oral Stated complaint: DENTAL PAIN Time Seen by Provider: 12/10/23 16:06 Source: patient Mode of arrival: ambulatory Limitations: no limitations History of Present Illness HPI Narrative: 33-year-old female [facility] for complaint of dental pain for 1 day. Patient endorses that she had he tooth extracted 4 days ago by a surgeon in [place]. The patient states that she called their office today explaining that she had purulence drainage and pain. Pt was told that they could get her in to be seen next week but that they recommended she be seen in express care today if she had concern for infection. Patient endorses that she has continued warm saltwater rinses her her symptoms his recommendation and has attempted to treat with ibuprofen at home with some improvement. Patient denies fever, facial edema, nausea, difficulty swallowing. Patient able to control secretions. Patient able to tolerate fluids by mouth. Related Data Allergies Allergy/AdvReac Type Severity Reaction Status Date / Time No Known Allergies Allergy Verified 09/20/23 15:27 Review of Systems Review of Systems: All systems reviewed & are unremarkable except as noted in HPI and below Constitutional: Constitutional: Reports no additional constitutional complaints Eyes: Eyes: Reports no additional eye complaints ENT: Reports dental pain, Denies facial pain, Denies headache(s), Denies nasal congestion, Denies throat swelling and Denies tongue swelling Cardiovascular: Cardiovascular: Reports no additional cardiovascular complaints, Denies chest pain and Denies dyspnea Respiratory: Respiratory: Reports no additional respiratory complaints, Denies cough and Denies dyspnea Musculoskeletal: Musculoskeletal: Reports no additional musculoskeletal complaints Neurologic: Reports system reviewed and no additional complaints, except as documented Psychiatric: Psychiatric: Reports no additional psychiatric complaints [facility] Past Medical History Medical History (Updated 12/10/23 @ 16:21 by Magaly Monterroso APRN) Frequent urination Suppression of menses Vaginal discharge Wrist joint pain Surgical History Surgical History H/O LEEP (~10/11/11) Family History Family History Father Hypertension Grandparent Diabetes mellitus Grandparent History of cancer Mother Liver cancer Social History Social History Smoking packs per day: 1 Smoking cigarettes per day: 20.0 Years smoked: 15 Smoking pack-years: 15.00 Smoking status: Current every day smoker Tobacco type: cigarettes Second hand tobacco smoke exposure: Yes Additional smoking assessment comments: 1/2 pack a day Alcohol intake: never Substance use: current Substance use type: marijuana Lack of Transportation: No Lack of Food: Never True Current Housing: I Have Housing Concerned About Future Housing: No Difficulty Paying Gas/Electric Bills: No Difficulty Paying for Meds: No Currently Unemployed: No Education: High School Diploma/GED Difficulty w/ Childcare or Family Care: No Living arrangements: with family Gender identity (if verbalized by the patient): Female Sexual Orientation (if Verbalized by the Patient): Straight or Heterosexual Spiritual care concerns: No Comments At the time of my signature, I reviewed and agree with the nursing past medical, surgical, social, and family history. There is no relevant family history pertinent to the patient complaint. Exam Const: General: cooperative, healthy appearing, comfortable, no acute distress, alert and well nourished Nutritional Appearance: well nourished Orientation/consciousness: patient oriented x3 Limitations: no limitations HENMT: Head: normal to inspection Ears
== END 2023-12-10 16:27 | disposition home or self-care (01) ==
PROVIDERS: Emergency Provider Nurse Practitioner Family; PCP Emergency Medicine
DX: K12.0 Recurrent oral aphthae (principal); F17.210 Nicotine dependence, cigarettes, uncomplicated
CPT/HCPCS: 99211; G0463

== ENCOUNTER 2024-01-17 14:10 | Outpatient (CLI) | payer OTHER, SELFPAY ==
[2024-01-17 15:10] LABS: Beta HCG Quantitative < 2.39 mIU/ML
== END 2024-01-17 14:11 | disposition home or self-care (01) ==
LOC: ANHLAB 14:10
PROVIDERS: PCP Emergency Medicine; Visit Provider Student in an Organized Health Care Education/Training Program
DX: N94.89 Other specified conditions associated with female genital organs and menstrual cycle (principal)
CPT/HCPCS: 36415; 84702